=== PATIENT | female | born 1945 | race Caucasian/White ===

== ENCOUNTER 2018-07-05 12:00 | Inpatient (IN) | payer OTHER ==
[2018-07-05] VITALS (7 sets, daily range): BP systolic 150–169; BP diastolic 68–85
[~2018-07-05] VITALS: Ht 167.6 cm; Wt 90.2 kg
--- NOTE | ~2018-07-05 | PR ---
[place], [place] PROGRESS NOTE NAME: PAOLO PATEL UNIT #: [id number] ROOM: [facility]- DOCTOR: CAIO ZAIDI MD BIRTHDATE: [birth year] DOS: 07/09/2018 SUBJECTIVE: The patient's left facial swelling improving. OBJECTIVE: GENERAL APPEARANCE: The patient is alert and oriented x 3, in no visible distress. VITAL SIGNS: Blood pressure 121/62, heart rate of 64 beats per minute, breathing 22 times per minute, temperature afebrile. HEENT AND NECK: Exam within normal limits. CARDIOVASCULAR SYSTEM: Heart rate is regular in rate and rhythm. S1 and S2 normally audible. LUNGS: Decreased breath sounds all over on lung auscultation and some expiratory wheezing and rhonchi. ABDOMEN: Soft, nontender. No obvious organomegaly. Bowel sounds are present. EXTREMITIES: Without significant cyanosis or edema. IMPRESSION: 1. Acute exacerbation of severe underlying chronic obstructive pulmonary disease with nicotine smoke dependence, being treated with BiPAP, oxygen, bronchodilators and Solu-Medrol and the patient is improving. Dr. New, the hospitality housekeeper, is following. 2. Acute hyponatremia from vomiting, resolved with treatment. 3. Benign essential hypertension. Blood pressures being monitored and treated and staying normal. 4. Acute hypokalemia from nausea and vomiting has resolved. Potassium levels are normal. CAIO ZAIDI MD CM:PNTRANS [id number] CAIO ZAIDI MD 07/10/18 1234 interface
--- NOTE | ~2018-07-05 | PR ---
[place], [place] PROGRESS NOTE [facility]: [id number] UNIT #: [id number] ROOM: 408 DOCTOR: CAIO ZAIDI MD BIRTHDATE: [birth year] DOS: 07/14/2018 SUBJECTIVE: The patient continues to feel better and she is being diuresed with Lasix. OBJECTIVE: VITAL SIGNS: Blood pressure 148/67, heart rate 72 beats per minute, breathing 20 times per minute, temperature 98.1 degrees Fahrenheit. GENERAL APPEARANCE: Generalized weakness. The patient is alert and oriented x 3, in no visible distress. HEENT AND NECK: Exam within normal limits. CARDIOVASCULAR SYSTEM: Heart rate is regular in rate and rhythm. S1 and S2 normally audible. LUNGS: Clear to auscultation. ABDOMEN: Soft, nontender. No obvious organomegaly. Bowel sounds are present. EXTREMITIES: Without significant cyanosis or edema. IMPRESSION: 1. The patient with acute congestive heart failure. Echocardiogram results are pending. The patient has bilateral pleural effusions. 2. Acute exacerbation of chronic obstructive pulmonary disease with hypercapnia and hypoxemic respiratory failure, improving with treatment. Dr. New is following. 3. The patient has moderate protein-calorie malnutrition, albumin level of 2.6. The patient working with Dietary. 4. Acute pneumonia, resolved with treatment, followed by Dr. New. 5. Acute hyponatremia and hypokalemia, resolved after diuresis was stopped at admission. CAIO ZAIDI MD CM:PNTRANS 15 6 CAIO ZAIDI MD 07/15/18206 interface
--- NOTE | ~2018-07-05 | CON ---
[place], [place] REPORT OF CONSULTATION NAME: PAOLO PATEL UNIT #: [id number] ROOM: 408 DOCTOR: SANTOSH DELGADO MDSILVIA BIRTHDATE: [birth year] DOS: 07/08/2018 PULMONARY CONSULTATION, EVALUATION AND MANAGEMENT REASON FOR CONSULTATION: To assess the patient for current progressive symptoms of shortness of breath, change in mental status and increased sleepiness. HISTORY OF PRESENT ILLNESS: This is a 73-year-old white female patient, unknown to me. The history could not be obtained from as the patient noted on the BiPAP with somewhat decreased responsiveness as well. All the history which was document the patient is reviewed and the findings from the primary care physician's note and the nurse's notes. This is a 73-year-old white female patient originally admitted to the hospital on 07/05/2018 as has developed significant evidence of cellulitis on the left side of the face. She has been treated with infection and received amoxicillin. The symptoms have been noted gradually worsen. With the use of the amoxicillin, developed abdominal pain and vomiting. She was assessed, noted severe hyponatremia as well. The patient presented to the hospital with consideration of intravascular volume depletion because of the diarrhea and vomiting. The patient has been treated on the floor then later on developed progressive increased shortness of breath, which was also present on admission and transferred from the telemetry floor to the Intensive Care Unit. She has arterial blood gases done, which were showing significant hypercapnia and also noted decreased responsiveness. She has been starting the BiPAP that had been used with partial improvement in the mental status was noted. This morning as the patient was seen, she has been using the BiPAP. She has been noted unresponsive and noted to be awake per nursing staff. She has been reported symptoms of edema of the lower extremity previously as well. Further history could not be obtained. REVIEW OF SYSTEMS: Could not be obtained from this patient as well. PAST MEDICAL HISTORY: Known with a history of: 1. Essential hypertension. 2. History of chronic obstructive pulmonary disease. 3. Chronic tobacco use. 4. Gastroesophageal reflux disease. SOCIAL HISTORY: The patient lives at home. She has been known with history of tobacco use, a pack or more of cigarettes per day previously since teenager. There is no history of alcohol use. Illicit drug use unknown. PAST SURGICAL HISTORY: Reported as tubal ligation. FAMILY HISTORY: The patient was noted noncontributory. MEDICATIONS: Which were noted from home as use of Cardizem-CD, omeprazole, quinapril, simvastatin and Dyazide. DRUG ALLERGIES: Noted with no known drug allergies. [place], [place] REPORT OF CONSULTATION NAME: PAOLO PATEL UNIT #: [id number] ROOM: 408 DOCTOR: SANTOSH DELGADO MD,SILVIA BIRTHDATE: [birth year] PHYSICAL EXAMINATION: GENERAL: This is a 73-year-old female patient who has been currently noted on the BiPAP arousable with vocal commands, nodding her head for some questions. Her height was recorded by the nursing staff on admission, height of 5 feet 6 inches, weight of 196 pounds, BMI 31.7. VITAL SIGNS: For the patient, which have been recorded shows in the last 24 hours. The temperature reported as normal. The respiratory rate was recorded as 29 at the highest before start of the BiPAP and later on settled down to 20. The heart rate ranged between 77-72. The blood pressure 127/40-136/50. The intake and output was recorded. Intake 2140 mL, the output was only 40 mL with positive 1.74 liters. The pulse oxygen saturation and bilirubin was not mentioned. Pulse oxygen saturation, oxygen saturation noted 93% with the BiPAP and 93% saturation of oxygen. HEENT: Showed moderate obesity. Head was atraumatic. Eyes nonicterus. NECK: Supple and obese. CARDIOVASCULAR: S1, S2 is audible. LUNGS: Noted generally diminished breath sounds in the lungs bilaterally with scattered expiratory wheezing. No crackles. ABDOMEN: Soft with moderate obesity. Bowel sounds present. EXTREMITIES: 1-2+ pitting edema in bilateral lower extremities. SKIN: Visible skin, no lesions or rashes. CENTRAL NERVOUS SYSTEM: The patient is able to move the patient as she has been asked to do so and spontaneously. There was no suspected gross focal neurologic deficit. MUSCULOSKELETAL: Noted without any acute deformities. LABORATORY DATA: Which was assessed. The CBC on admission on 07/05/2018 was noted as normal CBC at that time. The BMP at that time was noted as normal BUN and creatinine. Sodium 128. Arterial blood gas that was done, on 6-liter nasal cannula, pH 7.28, pCO2 60.4, pO2 64.7. The chest x-ray that was done on 07/08/2018 was reviewed, shows evidence of a small infiltration in the right lower lobe with a small pleural fluid was suspected that was the first x-ray done. BMP that was done this morning, BUN normal, creatinine was normal, sodium was normal and all of the electrolytes, which were assessed were normal. IMPRESSION: 1. The patient has been currently admitted to the hospital was noted with acute exacerbation of chronic obstructive pulmonary disease with acute hypercapnia and hypoxic respiratory failure. Change in mental status related to the chronic obstructive pulmonary disease exacerbation. 2. Peripheral edema. Small pleural fluid, possibility of acute pneumonia, right lower lobe to be considered related to aspiration as well. 3. The patient with moderate obesity as well. 4. History of essential hypertension. 5. Resolution of the hyponatremia with IV hydration related to nausea and vomiting formation. 6. Resolving cellulitis of the face. PLAN OF MANAGEMENT: Completion of continuation of antibiotics. The patient is on IV Zosyn, Solu-Medrol, started 40 mg b.i.d. Bronchodilators. The patient [place], [place] REPORT OF CONSULTATION NAME: PAOLO PATEL UNIT #: [id number] ROOM: [facility] DOCTOR: SANTOSH DELGADO MD,SILVIA BIRTHDATE: [birth year] will be continued as a DuoNeb every 4 hours, which was started today. The BiPAP, which has been ordered will be continued for several hours. Repeat arterial blood gas later this afternoon to assess the improvement in ventilatory status for the acute respiratory failure. The bronchodilator to be continued and other medical management to be continued. Supportive care. Avoid any excessive amount of fluid to prevent the fluid overload. Usual care. Pleural fluid noted small and would not require any acute intervention. Keep the patient in Intensive Care Unit at this time as if the respiratory status get progressively worse in spite of the BiPAP, she will require intubation and mechanical ventilation. The patient noted full code. Other supportive therapy, plan of management. Nicotine therapy has been already given to overcome any nicotine withdrawal. Supportive care, other therapy, plan of management, care plan of treatment and therapies. Thanks for allowing me to participate in the care of this patient. SILVIA FROST MD CM:CONSTR:REPORT OF CONSULTATION 1512 07/28/18 0805 interface
--- NOTE | ~2018-07-05 | PR ---
[place], [place] PROGRESS NOTE [id number] UNIT #: [id number] ROOM: 408 DOCTOR: SANTOSH DELGADO MD,SILVIA BIRTHDATE: [birth year] DOS: 07/13/2018 PULMONARY PROGRESS NOTE SUBJECTIVE: The patient has been still complaining of the fluid retention. She was started Lasix yesterday. Denies symptoms of fever or chills. Denies symptoms of chest pain or hemoptysis. Denies symptoms of nausea, vomiting, complaining of edema of the lower extremity. Denies any pain of the lower extremity. Denies symptoms of headache or diplopia. Remaining systems were reviewed. They were noted all negative. OBJECTIVE: VITAL SIGNS: For the patient, which are recorded showed normal temperature, respiratory rate 20, heart rate 62, blood pressure 167/81-162/82. Pulse oxygen saturation of the patient recorded on 3 liters nasal cannula 92% saturation. Intake for the patient of 1875 mL and output 650 mL recorded. Pulse ox saturation on 3 liters nasal cannula 92% saturation. HEENT: Examination shows head was atraumatic. Eyes nonicterus. NECK: Supple. CARDIOVASCULAR: S1, S2 heard. LUNGS: Moderate decreased breath sounds, scattered crackles of the lungs bilaterally. ABDOMEN: Soft, nontender, bowel sounds present and obese. EXTREMITIES: Noted with edema. MUSCULOSKELETAL: Without acute deformities. VISIBLE SKIN: No lesions or rashes. CENTRAL NERVOUS SYSTEM: Nonfocal. LABORATORY DATA: Chest x-ray that was done yesterday for the patient was noted with finding of congestive heart failure with small bilateral pleural effusions as well. CBC of yesterday for the patient was noted with a WBC count of 15.6, hemoglobin and hematocrit normal, platelet count normal. CMP, the patient yesterday normal BUN and creatinine, mildly abnormal AST, ALT. BMP of the patient this morning, normal BUN and creatinine. CO2 36. IMPRESSION: The patient who has been noted with current acute congestive heart failure with acute exacerbation of chronic obstructive pulmonary disease. The patient was given 80 mg of Lasix yesterday for this patient noted with the diuresis cannot be accurately determined because of the lack of the correct output documentation. The patient was still noted edema finding and the finding of congestive heart failure. PLAN OF MANAGEMENT: The patient was recommended Cardiology assessment if not ordered. Diuretic therapy to be continued. Supportive therapy, plan of management, care plan of treatment and usual care. [place], [place] PROGRESS NOTE NAME: PAOLO PATEL UNIT #: [id number] ROOM: [facility] DOCTOR: SILVIA SINGH MD BIRTHDATE: [birth year] SILVIA FROST MD CM:PNTRANS 2 4 SILVIA DELGADO MD 07/28/18 0804 interface
--- NOTE | ~2018-07-05 | PR ---
[place], [place] PROGRESS NOTE [id number] #: [id number] ROOM: 408 DOCTOR: CAIO ZAIDI MD BIRTHDATE: [birth year] DOS: SUBJECTIVE: The patient continues to improve. She has diuresed very well. OBJECTIVE: GENERAL APPEARANCE: The patient is alert and oriented x 3, in no visible distress. The patient is still requiring oxygen. VITAL SIGNS: Blood pressure 121/59, heart rate of 70 beats per minute, breathing 20 times per minute, afebrile. HEENT AND NECK: Exam within normal limits. CARDIOVASCULAR SYSTEM: Heart rate is regular in rate and rhythm. S1 and S2 normally audible. LUNGS: Clear to auscultation. ABDOMEN: Soft, nontender. No obvious organomegaly. Bowel sounds are present. EXTREMITIES: Without significant cyanosis or edema. IMPRESSION: 1. The patient with acute over chronic diastolic type congestive heart failure with left ventricular hypertrophy, improved with diuresis with IV Lasix. Cardiology is following. 2. Left facial cellulitis and dental infection, has resolved with treatment of antibiotics. 3. Acute exacerbation of chronic obstructive pulmonary disease, improving with treatment, Dr. New is following. 4. Moderate protein-calorie malnutrition with albumin level of 2.6, being followed by Dietary. 5. Acute pneumonia, resolved. Dr. New is following. 6. Acute hyponatremia and hypokalemia, resolved. CAIO ZAIDI MD CM:PNTRANS [phone] CAIO ZAIDI MD 07/16/18 0146 interface
--- NOTE | ~2018-07-05 | DS ---
[place], [place] DISCHARGE SUMMARY NAME: PAOLO PATEL UNIT #: [id number] ROOM: 408 DOCTOR: ROLANDO HAMILTON MD BIRTHDATE: [birth year] DOS: 07/17/2018 HOSPITAL COURSE: This patient is 73 years old. The patient comes in to the Emergency Room with complaints of swelling of the left side of the face on 07/05/2018. She also was having some nausea and emesis. She was found to be hyponatremic and was admitted with facial cellulitis, possible dental abscess. Please refer to H and P dictated by Dr. Goss as well as consult notes from multiple consultants and progress notes over the last several days. She was admitted, was treated with hyponatremia. She was started on antibiotics for the cellulitis and IV fluids were given. The patient also had underlying chronic obstructive pulmonary disease and acute exacerbation, was treated with appropriate treatment plan with breathing treatments and antibiotics and steroids. The patient did improve, but received Dilaudid, which made her go into respiratory failure, was transferred to ICU, was monitored in the ICU, was placed on BiPAP with improvement and then [place] [facility] She was seen by Dr. New as well as Dr. Ren. Echocardiogram showed normal LV function. She went into acute diastolic congestive heart failure, for which she was diuresed. The patient has required continued oxygen supplementation. She has not smoked for about 2 weeks and she has been here. Oxygen assessment will be ordered and if she qualifies, we will need to arrange for oxygen supplementation. Otherwise, the patient is stable and can be discharged to home. Last chest x-ray, which did show small pleural effusion, but this was not amenable for thoracentesis. DISCHARGE MEDICATIONS: Aldactone 25 mg daily, Lasix 40 daily, diltiazem 240 daily, quinapril 40 daily, simvastatin 10 daily, omeprazole 20 daily, tapering dose of prednisone, DuoNeb q.4, nebulizer was prescribed and Ceftin 250 twice daily for 5 days. [place], [place] DISCHARGE SUMMARY NAME: PAOLO PATEL UNIT #: [id number] ROOM: 408 DOCTOR: ROLANDO HAMILTON MD BIRTHDATE: [birth year] ROLANDO HAMILTON MD CM:RAJINDER [id number] 1622 ROLANDO HAMILTON MD 07/17/18 1622 interface
--- NOTE | ~2018-07-05 | PR ---
[place], [place] PROGRESS NOTE NAME: PAOLO PATEL UNIT #: [id number] ROOM: [facility] DOCTOR: SILVIA SINGH MD BIRTHDATE: [birth year] DOS: 07/09/2018 SUBJECTIVE: The patient has been noted comfortable at this time, resting, use the BiPAP intermittently, had not been reported hemodynamic instability, and has not been noted symptoms of chest pain, fever or chills. The patient has been noted without any acute distress this morning of assessment. Remains in the Intensive Care Unit. Mental status was noted much improved. Remaining systems were reviewed, negative. OBJECTIVE: VITAL SIGNS: Normal temperature, respiratory rate 22, heart rate 64, blood pressure 121/60 to 156/85. Pulse oxygen saturation on 4 liters nasal cannula 94% saturation recorded. HEAD, EYES, EARS, NOSE, AND THROAT: No acute change. NECK: Supple. CARDIOVASCULAR SYSTEM: S1, S2 is audible. LUNGS: Noted with moderate decreased breath sounds in the lungs bilaterally. ABDOMEN: Soft, nontender. EXTREMITIES: Noted without any edema, clubbing or cyanosis. VISIBLE SKIN: No lesions or rashes. CENTRAL NERVOUS SYSTEM: Noted without any gross focal deficit. LABORATORY DATA: Arterial blood gas yesterday pH of 7.31, pCO2 of 57, pO2 of 64. BMP this morning, normal BUN and creatinine. IMPRESSION: 1. Acute respiratory failure with hypercapnia and hypoxemia. 2. Moderate obesity. 3. Change in mental status, which has been improving. 4. Acute exacerbation of chronic obstructive pulmonary disease as well. PLAN OF TREATMENT: Continue antibiotics, bronchodilators, corticosteroids and the BiPAP use. Order the arterial blood gas to reassess the improvement in the ventilation today. Continue other therapy, plan and management previously otherwise, usual care. Additional treatment changes, continue to be made based on progression of the illness. [place], [place] PROGRESS NOTE NAME: PAOLO PATEL UNIT #: [id number] ROOM: [facility] DOCTOR: SILVIA SINGH MD BIRTHDATE: [birth year] SILVIA FROST MD CM:PNTRANS [id number] 1738 SILVIA DELGADO MD 07/09/18 1737 interface
--- NOTE | ~2018-07-05 | PR ---
[place], [place] PROGRESS NOTE NAME: PAOLO PATEL UNIT #: [id number] ROOM: 408 DOCTOR: SILVIA SINGH MD BIRTHDATE: [birth year] DOS: 07/15/2018 PULMONARY PROGRESS NOTE SUBJECTIVE: The patient continued to do well with current diuresis with improvement in the edema of the lower extremity and reduction in symptoms of shortness of breath in the last 24 hours. Denies symptoms of fever or chills. Denies symptoms of hemoptysis. Denies symptoms of chest pain. BiPAP has been used by the patient at nighttime and daytime oxygen supplementation nasal cannula. OBJECTIVE: VITAL SIGNS: Normal temperature, respiratory rate of 18, heart rate 79, blood pressure 126/65. The pulse oxygen saturation recorded as 95% on 3 liters cannula. HEENT: Examination shows head was atraumatic. Eyes: No icterus. NECK: Supple. CARDIOVASCULAR: S1, S2 is audible. LUNGS: The patient was noted without any wheeze or crackles at the present time. ABDOMEN: Soft, nontender. EXTREMITIES: Noted resolving edema. IMPRESSION: 1. Resolving acute congestive heart failure with the pleural fluid clinical as well. 2. Improving congestive heart failure, respiratory failure with hypercapnia and chronic obstructive pulmonary disease as well. 3. Metabolic alkalosis. The patient was noted with the patient's CO2 level of 40 today, multifactorial secondary to hypercarbia and intravascular volume depletion and diuretics. PLAN OF MANAGEMENT: Monitoring of the metabolic alkalosis. Continue diuretics. Continue bronchodilator of the treatment plan and management. Obtain a chest x-ray in the morning to assess the resolution of the current pleural fluid and congestive heart failure. [place], [place] PROGRESS NOTE NAME: PAOLO PATEL UNIT #: [id number] ROOM: 408 DOCTOR: SILVIA SINGH MD BIRTHDATE: [birth year] SILVIA FROST MD CM:PNTRANS [id number] SILVIA DELGADO MD 07/15/18 1759 interface
--- NOTE | ~2018-07-05 | PR ---
[place], [place] PROGRESS NOTE NAME: PAOLO PATEL UNIT #: [id number] ROOM: [facility] DOCTOR: SILVIA SINGH MD BIRTHDATE: [birth year] DOS: 07/10/2018 PULMONARY PROGRESS NOTE SUBJECTIVE: The patient is noted comfortable at this time, resting on the bed. Noted fully awake and alert, using oxygen supplementation this morning through nasal cannula, used BiPAP for significant amount of hours in the last 24 hours. Denies symptoms of chest pain. Coughing and wheezing have been gradually subsiding. There were no symptoms of chest pain or any abdominal pain. OBJECTIVE: VITAL SIGNS: Which were recorded showed the temperature noted as normal, the respiratory rate of the patient recorded as 21, heart rate 87, blood pressure 127/55. The pulse oxygen saturation on nasal cannula 4 liters was 92% saturation at rest. HEENT: Shows head was atraumatic, eyes nonicterus. NECK: Supple. CARDIOVASCULAR: S1 and S2 audible. LUNGS: The patient was noted without any crackles or rhonchi. Decreased breath sounds were noted in the lower portion of the lungs bilaterally. ABDOMEN: Soft with mild to moderate obesity. Bowel sounds present. EXTREMITIES: Without any acute edema. LABORATORY DATA: Arterial blood gas that was done this morning with pH of 7.39, pCO2 45, pO2 73 on 4 liters nasal cannula. IMPRESSION: 1. The patient with gradual but progressive resolution of acute exacerbation of chronic obstructive pulmonary disease was noted with improvement in ventilatory status. 2. Acute bronchitis. 3. Resolved mental status changes. 4. Moderate obesity. PLAN OF MANAGEMENT: Continuation of bronchodilators, oxygen supplementation. She is still using BiPAP as previously without any changes, similar to that as tolerated during the day, continues at nighttime. Decrease the dose of Solu-Medrol to 40 mg b.i.d. from 3 times a day dosing. [place], [place] PROGRESS NOTE NAME: PAOLO PATEL UNIT #: [id number] ROOM: [facility] DOCTOR: SILVIA SINGH MD BIRTHDATE: [birth year] SILVIA FROST MD CM:PNTRANS 1632 SILVIA DELGADO MD 07/11/183 interface
--- NOTE | ~2018-07-05 | PR ---
[place], [place] PROGRESS NOTE [id number] UNIT #: [id number] ROOM: [facility]- DOCTOR: CAIO ZAIDI MD BIRTHDATE: [birth year] DOS: 07/07/2018 SUBJECTIVE: The patient still with left-sided facial weakness and some tenderness in her left cheek, which is improving with present treatment and antibiotics. OBJECTIVE: VITAL SIGNS: Blood pressure 120/60, heart rate of 63 beats per minute, breathing 18 times per minute, afebrile. GENERAL APPEARANCE: The patient is alert and oriented x 3, in no visible distress. HEENT AND NECK: Exam within normal limits. CARDIOVASCULAR SYSTEM: Heart rate is regular in rate and rhythm. S1 and S2 normally audible. LUNGS: Clear to auscultation. ABDOMEN: Soft, nontender. No obvious organomegaly. Bowel sounds are present. EXTREMITIES: Without significant cyanosis or edema. IMPRESSION: 1. The patient with left cheek and facial cellulitis, improving with treatment. 2. Severe hyponatremia, resolved with treatment. Sodium level at 137 today with hydration with normal saline. The patient's diuretics were stopped. 3. Centrilobular emphysema and continued nicotine smoke dependence. The patient has been encouraged to stop smoking cigarettes. 4. The patient with peripheral polyneuropathy and chronic leg pains treated with Neurontin. 5. Benign essential hypertension. Blood pressures are being monitored and treated and staying normal. 6. Significant abdominal pain, nausea and vomiting have resolved. CAIO ZAIDI MD CM:PNTRANS 02 31 CAIO ZAIDI MD 07/08/181831 interface
--- NOTE | ~2018-07-05 | PR ---
[place], [place] PROGRESS NOTE NAME: PAOLO PATEL UNIT #: [id number] [facility] DOCTOR: CAIO ZAIDI MD BIRTHDATE: [birth year] DOS: 07/08/2018 SUBJECTIVE: The patient became short of breath, lethargic and hypoxemic this morning and went into acute respiratory failure and was transferred to ICU and she is starting to feel better. OBJECTIVE: VITAL SIGNS: Blood pressure 123/53, heart rate 72 beats per minute, breathing 18 times per minute, temperature 98.8 degrees Fahrenheit. GENERAL APPEARANCE: The patient is alert and oriented x 3, in no visible distress. HEENT AND NECK: Exam within normal limits. CARDIOVASCULAR SYSTEM: Heart rate is regular in rate and rhythm. S1 and S2 normally audible. LUNGS: Somewhat decreased breath sounds. ABDOMEN: Soft, nontender. No obvious organomegaly. Bowel sounds are present. EXTREMITIES: Without significant cyanosis or edema. IMPRESSION: 1. Acute over chronic respiratory failure, possibly mucus plugging with hypoxemia, all improved. Dr. New, the political research scientist has put her on BiPAP. 2. Hyponatremia from vomiting and the patient is unable to tolerate food because she was sick. Sodium has returned to normal with treatment with normal saline. 3. Benign essential hypertension, treated and blood pressure is staying normal. 4. The patient has severe peripheral polyneuropathy and chronic leg pain, is now controlled with Neurontin. 5. Hypokalemia from nausea and vomiting has resolved with potassium supplements. CAIO ZAIDI MD CM:PNTRANS [id number] CAIO ZAIDI MD 07/09/18 1026 interface
--- NOTE | ~2018-07-05 | PR ---
[place], [place] PROGRESS NOTE NAME: [id number] UNIT #: [id number] ROOM: 408 DOCTOR: CAIO ZAIDI MD BIRTHDATE: [birth year] DOS: SUBJECTIVE: The patient went to acute congestive heart failure with hydration with normal saline, which has been stopped and the patient diuresed with IV Lasix. Her chest x-ray showed congestive heart failure. Chest x-ray will be repeated tomorrow. PHYSICAL EXAM: GENERAL: The patient is well developed and appropriate for usual state of health in no apparent distress. VITAL SIGNS: Blood pressure 157/69, heart rate 89 beats per minute, breathing 20 times per minute, temperature 98 degrees Fahrenheit. HEENT: Pupils equal, round, and reactive to light. EOMI. There is no scleral icterus. NECK: C-spine is soft and supple, there is no meningismus. There is no cervical lymphadenopathy. LUNGS: Clear to auscultation bilaterally. There are no rales, wheezes or rhonchi. HEART: Regular rate and rhythm, no murmurs, clicks, rubs or gallops. ABDOMEN: Soft, nontender, nondistended. There are bowel sounds in all four quadrants. No rebound or guarding. EXTREMITIES: There is no peripheral cyanosis or edema. No focal swelling or erythema. NEURO: The patient moves all four extremities with 5/5 strength. Cranial nerves II - XII are intact. Normal gait. Alert and oriented SKIN: There is no apparent rash or petechiae. HEME/LYMPHATIC: There is no evidence of excessive bruising or lymphedema. PSYCHIATRIC: The patient does not appear anxious or depressed. IMPRESSION: 1. Acute congestive heart failure, treated with IV Lasix. Serum electrolytes to be monitored and chest x-ray to be repeated in the morning. 2. Moderate to severe protein-calorie malnutrition. The patient is working with dietary. 3. Leukocytosis from corticosteroids, which have been discontinued. 4. Acute over chronic hypercapnic hypoxemic respiratory failure with acute exacerbation of chronic obstructive pulmonary disease, improving with treatment. 5. Acute pneumonia, resolving with treatment. 6. Acute hyponatremia and hypokalemia, resolved with supplements, was secondary to diuretics, which have been stopped. 7. Benign essential hypertension with elevated blood pressures. Should resolve with diuresis. [place], [place] PROGRESS NOTE NAME: PAOLO PATEL UNIT #: [id number] ROOM: 408 DOCTOR: CAIO ZAIDI MD BIRTHDATE: [birth year] CAIO ZAIDI MD CM:PNTRANS [id number] CAIO ZAIDI MD 07/13/18 0723 interface
--- NOTE | ~2018-07-05 | PR ---
[place], [place] PROGRESS NOTE [id number] UNIT #: [id number] ROOM: 415 DOCTOR: CAIO ZAIDI MD BIRTHDATE: [birth year] DOS: 07/06/2018 SUBJECTIVE: The patient is starting to feel better. The pain and swelling in her left cheek is improving and abdominal pains have also improved. OBJECTIVE: VITAL SIGNS: Blood pressure 114/84, heart rate 73 beats per minute, breathing 20 times per minute, temperature 98.2 degrees Fahrenheit. GENERAL APPEARANCE: The patient is alert and oriented x 3, in no visible distress. HEENT AND NECK: Swelling on the left cheek. CARDIOVASCULAR SYSTEM: Heart rate is regular in rate and rhythm. S1 and S2 normally audible. LUNGS: Clear to auscultation. ABDOMEN: Soft, nontender. No obvious organomegaly. Bowel sounds are present. EXTREMITIES: Without significant cyanosis or edema. IMPRESSION AND PLAN: 1. Hyponatremia with sodium improved to 128 from 118 yesterday. Hyponatremia from vomiting and the patient being unable to tolerate food earlier, was treated with hydration with normal saline. 2. Hypokalemia, again from vomiting and not being able to tolerate food from nausea and vomiting, has returned to normal with extra potassium supplements. 3. Centrilobular emphysema and nicotine smoke dependence. The patient has been encouraged to stop smoking cigarettes. 4. The patient has peripheral polyneuropathy and chronic leg pains, is requesting to be restarted on Neurontin, which was restarted. She was taking that before, but ran out of her prescriptions because she was not following up at the office with me. 5. Benign essential hypertension with normal blood pressures. The patient's diuretics were stopped because they were contributing to her hyponatremia and hypokalemia. 6. Significant abdominal pain with nausea and vomiting has resolved. CAIO ZAIDI MD CM:PNTRANS [phone] CAIO ZAIDI MD 07/07/18224 interface
--- NOTE | ~2018-07-05 | EKG ---
[place], [place] ELECTROCARDIOGRAM REPORT NAME: PAOLO PATEL UNIT #: [id number] ROOM: 415 DOCTOR: LAMIN DRAFT REPORT BIRTHDATE: [birth year] [facility] Test Date: 2018-07-05 Test Time: 12:45:51 Pat Name: PAOLO PATEL Department: Room: 415 Gender: F Technician Inventory Specialist: : 1945 Requested By: GENESIS COTA Order Number: [id number] Reading MD: Melanie De Los Santos MD Measurements Intervals [place] Rate: 80 P: -37 [place]: 169 QRS: -9 QRSD: 92 T: 68 QT: 449 QTc: 518 Interpretive Statements Sinus rhythm Minimal ST depression, inferior leads Prolonged QT interval No previous ECG available for comparison Electronically Signed On 07-05-2018 17:03:41 PST by Melanie De Los Santos MD CM:EKGRPT:ELECTROCARDIOGRAM REPORT [id number] GENESIS COTA MD EPIPHANY DRAFT REPORT GENESIS COTA MD
--- NOTE | ~2018-07-05 | PR ---
[place], [place] PROGRESS NOTE NAME: PAOLO PATEL UNIT #: [id number] ROOM: 408 DOCTOR: SILVIA SINGH MD BIRTHDATE: [birth year] DOS: 07/14/2018 PULMONARY PROGRESS NOTE SUBJECTIVE: She has been still noted with symptoms of shortness of breath that occurs with exertion. She has been assessed by the Cardiology Services. Denies symptoms of chest pain, edema of the lower extremity still reported. Denies symptoms of hemoptysis, nausea, vomiting or diarrhea. The patient was using the BiPAP as ordered and using oxygen supplementation intermittently as well. OBJECTIVE: VITAL SIGNS: Normal temperature, respiratory rate 20, heart rate of 70, blood pressure 127/71. Pulse oxygen saturation on 3 liters nasal cannula 93% saturation at rest with the BiPAP 40% and 92% saturation of oxygen noted. HEENT: Head was atraumatic. Eyes nonicterus. Moderate obesity. CARDIOVASCULAR: S1, S2 audible. LUNGS: Diminished breath sounds bilaterally in the lower lungs. There was no wheezing. No crackles. ABDOMEN: Soft and nontender. EXTREMITIES: Noted with edema. LABORATORY DATA: The patient's chest x-ray done yesterday was still noted with pleural fluid bilaterally, greater on the left than the right side. IMPRESSION: 1. The patient with congestive heart failure, bilateral pleural fluid, greater on the left than the right side. 2. Resolving acute hypercapnia hypoxic respiratory failure, exacerbation of chronic obstructive pulmonary disease. 3. Chronic obesity. 4. Suspicion of obstructive sleep apnea disorder as well. PLAN OF MANAGEMENT: No changes in the plan of care at this time would be needed. The patient will be continued on current plan of management as in progress. Other usual care, plan of management. She was ordered Lasix 60 mg daily for the next 3 days with potassium supplementation and the assessment of the electrolytes were ordered as well. [place], [place] PROGRESS NOTE NAME: PAOLO PATEL UNIT #: [id number] ROOM: 408 DOCTOR: SILVIA SINGH MD BIRTHDATE: [birth year] SILVIA FROST MD CM:PNTRANS [phone] SILVIA DELGADO MD 07/14/18 1658 interface
--- NOTE | ~2018-07-05 | PR ---
[place], [place] PROGRESS NOTE NAME: PAOLO PATEL UNIT #: [id number] ROOM: 408 DOCTOR: CAIO ZAIDI MD BIRTHDATE: [birth year] DOS: 07/11/2018 SUBJECTIVE: The patient says she is breathing a little better. OBJECTIVE: GENERAL APPEARANCE: The patient is alert and oriented x 3, in no visible distress. VITAL SIGNS: Blood pressure 148/74, heart rate 80 beats per minute, breathing 17 times per minute, temperature 98 degrees Fahrenheit. HEENT AND NECK: Exam within normal limits. CARDIOVASCULAR SYSTEM: Heart rate is regular in rate and rhythm. S1 and S2 normally audible. LUNGS: Clear to auscultation. ABDOMEN: Soft, nontender. No obvious organomegaly. Bowel sounds are present. EXTREMITIES: Without significant cyanosis or edema. IMPRESSION: 1. Acute exacerbation of severe underlying chronic obstructive pulmonary disease and acute over chronic respiratory failure with continued nicotine smoke dependence. Breathing is overall improving, so I will move her to intermediate monitored bed. The patient is on Solu-Medrol, DuoNeb, and Zosyn. 2. Acute hypokalemia, resolved with potassium supplements. 3. Acute hyponatremia from vomiting, resolved with treatment. 4. Benign essential hypertension. Blood pressures are staying normal with treatment. CAIO ZAIDI MD CM:PNTRANS [phone] CAIO ZAIDI MD 07/12/18 182 interface
--- NOTE | ~2018-07-05 | WRIGHTHP ---
[place], [place] PATIENT HISTORY AND PHYSICAL EXAM NAME: PAOLO PATEL [facility] #: [id number] UNIT #: [id number] ROOM: 415 DOCTOR: CAIO ZAIDI MD BIRTHDATE: [birth year] DOS: 07/05/2018 HISTORY OF PRESENT ILLNESS: The patient is a 73-year-old female with a past medical history of: 1. Obesity. 2. Benign essential hypertension. 3. Gastroesophageal reflux disease and esophagitis. 4. Chronic obstructive pulmonary disease. 5. The patient has nicotine smoke dependence. The patient presented to the Emergency Department with complaints of left-sided swelling in her face and was treated for cellulitis and tooth infection and dental pain and she was given amoxicillin, following which she developed significant abdominal pains and some vomiting. The patient returned to the Emergency Department and was found to be hyponatremic with cellulitis involving the left face and significant abdominal pains along with hyponatremia and she was recommended for admission on further management for failed outpatient treatment. After admission, the patient still complains of significant abdominal pains. The patient's CT scan of the sinuses and the face and the orbits showed some soft tissue swelling and diffuse inflammation, but no abscess. Chest x-ray showed COPD. The patient was also found to be hypokalemic with a potassium level of only 3.1. No chest pain, no shortness of breath, no other GI or urinary symptoms. REVIEW OF SYSTEMS: RESPIRATORY: No increasing shortness of breath. GASTROINTESTINAL: The patient with stomach pains and vomiting. CARDIOVASCULAR: No chest pains or palpitations. RESPIRATORY: No increasing shortness of breath or wheezing. FAMILY HISTORY: Noncontributory. HOME MEDICATIONS: The patient was taking diuretics, quinapril and diltiazem. ALLERGIES: No known drug allergies. HOME MEDICATIONS: As mentioned above. FAMILY HISTORY: Noncontributory. PHYSICAL EXAMINATION: GENERAL: Alert and oriented x 3. Obesity with BMI of 31.7. HEENT AND NECK: Extraocular movements are intact. Sclerae are anicteric. Oral mucosa is moist and clean. No obvious facial weakness. Neck is supple without any lymphadenopathy. No thyromegaly. No JVD. No carotid arterial bruits. LUNGS: Clear to auscultation. No wheezing. No rhonchi. CARDIOVASCULAR SYSTEM: Heart rate is regular in rate and rhythm. S1 and S2 normally audible. No significant murmur or any other abnormal cardiac sounds. ABDOMEN: Soft, nontender. No obvious organomegaly. Bowel sounds are present. No obvious herniation. [place], [place] PATIENT HISTORY AND PHYSICAL EXAM NAME: PAOLO PATEL UNIT #: [id number] ROOM: [facility] DOCTOR: CAIO ZAIDI MD BIRTHDATE: [birth year] EXTREMITIES: Without significant cyanosis or edema. Warm to touch. CENTRAL NERVOUS SYSTEM: Alert and oriented x 3. Cranial nerves II-XII are intact. Speech is normal. The patient is able to move all extremities. Normal muscle strength. Deep tendon reflexes are equal on both sides. Plantars were downgoing. IMPRESSION: 1. The patient presenting with left facial cellulitis and dental infection on the left side to be treated with IV Zosyn and blood counts and serum electrolytes to be monitored. The patient's white cell count is elevated to 13,600 at admission. 2. Hyponatremia and hypokalemia from vomiting and not being able to tolerate food. The patient is being hydrated with normal saline and given extra potassium supplements and serum electrolytes will be repeated on a daily basis. 3. Significant abdominal pains and some nausea and vomiting, being treated with Zofran. 4. Centrilobular emphysema, nicotine smoke dependence. The patient without shortness of breath. 5. Nicotine smoke dependence. The patient encouraged to stop smoking cigarettes and started on nicotine patch. 6. Benign essential hypertension with elevated blood pressures. The patient continued on lisinopril and diltiazem. 7. The patient's diuretics, which were apparently contributing to her hyponatremia and hypokalemia, have been given. CAIO ZAIDI MD CM:HISPHYS:PATIENT HISTORY AND PHYSICAL EXAMINATION 56 15 CAIO ZAIDI MD 07/05/181715 interface
--- NOTE | ~2018-07-05 | PR ---
[place], [place] PROGRESS NOTE NAME: PAOLO PATEL UNIT #: [id number] ROOM: 408 DOCTOR: CAIO ZAIDI MD BIRTHDATE: [birth year] DOS: 07/11/2018 SUBJECTIVE: The patient is feeling much better. Breathing has improved. OBJECTIVE: VITAL SIGNS: Blood pressure 137/66, heart rate of 71 beats per minute, breathing normally, afebrile. GENERAL APPEARANCE: The patient is alert and oriented x 3, in no visible distress. HEENT AND NECK: Exam within normal limits. CARDIOVASCULAR SYSTEM: Heart rate is regular in rate and rhythm. S1 and S2 normally audible. LUNGS: Some expiratory wheezing, slightly decreased breath sounds on lung auscultation. ABDOMEN: Soft, nontender. No obvious organomegaly. Bowel sounds are present. EXTREMITIES: Without significant cyanosis or edema. IMPRESSION: 1. The patient with acute over chronic respiratory failure with acute exacerbation of chronic obstructive pulmonary disease is being followed by Dr. New. I will transfer to [facility]. 2. Acute hyponatremia and hypokalemia has resolved. 3. Benign essential hypertension, treated and controlled. 4. No more abdominal pain, nausea, vomiting. CAIO ZAIDI MD CM:PNTRANS [phone] CAIO ZAIDI MD 07/12/18 1332 interface
--- NOTE | ~2018-07-05 | PR ---
[place], [place] PROGRESS NOTE NAME: PAOLO PATEL UNIT #: [id number] ROOM: [facility] DOCTOR: SANTOSH DELGADO MD,SILVIA BIRTHDATE: [birth year] DOS: 07/11/2018 SUBJECTIVE: The patient has been going well continuously. Use the BiPAP for patient as ordered at night and p.r.n. during the day. This morning was sitting on the chair. Shortness of breath has been improved significantly. There were no symptoms of fever, chills, coughing or sputum expectoration reported today. OBJECTIVE: VITAL SIGNS: For the patient which were recorded showed normal temperature, respiratory rate 21, heart rate 79, blood pressure 124/64. The pulse oxygen saturation on 4 liters nasal cannula, rest was 94% saturation. HEENT: Examination shows head was atraumatic. Eyes nonicterus. NECK: Supple. CARDIOVASCULAR: S1, S2 is audible. LUNGS: The patient has diminished breath sounds in the lungs bilaterally, improved air entry noted. Scattered wheezing. ABDOMEN: Soft, nontender. Bowel sounds present. EXTREMITIES: No acute change. IMPRESSION: Progressive but gradual resolution of [id number]-[id number] hypercapnic and hypoxic respiratory failure with exacerbation of chronic obstructive pulmonary disease, debility and muscle deconditioning. PLAN OF TREATMENT: The patient may be transferred from the intensive care unit to medical floor. Physical therapy, occupation therapy should be assessed. Continue oxygen supplementation to maintain pulse ox saturation 90% or greater. Other supportive therapy, plan of management, care plan and therapies. SILVIA FROST MD CM:PNTRANS [phone] SILVIA DELGADO MD 07/11/18 1140 interface
--- NOTE | ~2018-07-05 | PR ---
[place], [place] PROGRESS NOTE NAME: PAOLO PATEL UNIT #: [id number] ROOM: 408 DOCTOR: SANTOSH DELGADO MD,SILVIA BIRTHDATE: [birth year] DOS: 07/16/2018 PULMONARY PROGRESS NOTE SUBJECTIVE: The patient was noted comfortable at this time, resting on the bed. Continued to show improvement in the respiratory symptoms, no shortness of breath. There were no symptoms of chest pain, fever or chills reported by the patient. REVIEW OF SYSTEMS: The patient denies symptoms of headache or diplopia, nausea, vomiting, diarrhea, abdominal pain, hematemesis, melena, hematochezia. The ambulation was improving and decreased shortness of breath. Remaining systems were reviewed. They were noted all negative. OBJECTIVE: VITAL SIGNS: Normal temperature, respiratory rate 20, heart rate 63, blood pressure 120/59. Pulse ox saturation on 3 liters nasal cannula 93% saturation. HEENT: Head was atraumatic. Eyes nonicterus. NECK: Supple. CARDIOVASCULAR: S1, S2 audible. LUNGS: The patient was noted with mild decreased breath sounds left lung base, remaining lung was clear. ABDOMEN: Soft, nontender. Bowel sounds present. EXTREMITIES: The extremities without any acute edema today. No new change. CENTRAL NERVOUS SYSTEM: Cranial nerves 2-12 intact. MUSCULOSKELETAL: Without acute deformities. SKIN: No lesions or rashes. LABORATORY DATA: Chest x-ray done this morning shows small left pleural fluid, the right lung was clear. The ultrasound of the chest was also performed at the bedside shows only small fluid non-tappable because of the lung was noted in the view of the pleural fluid. IMPRESSION: 1. Resolving acute on chronic hypercapnic and hypoxic respiratory failure with acute exacerbation of chronic obstructive pulmonary disease. 2. Acute congestive heart failure as well with the diastolic dysfunction. 3. Small left pleural fluid improving progressively. 4. The patient with moderate obesity. 5. Past history of nicotine use. PLAN OF MANAGEMENT: Continuation of diuretic, bronchodilators, oxygen supplementation. Discharge planning with oral conversion of the medication and diuretics would be considered possibly in the next 24 hours. Continuation of other therapy, plan of management, care plan of treatment and therapy, does not require any acute new intervention. [place], [place] PROGRESS NOTE NAME: PAOLO PATEL UNIT #: [id number] ROOM: [facility] DOCTOR: SILVIA SINGH MD BIRTHDATE: [birth year] SILVIA FROST MD CM:PNTRANS 1531 SILVIA DELGADO MD 07/16/18 1618 interface
--- NOTE | ~2018-07-05 | PR ---
[place], [place] PROGRESS NOTE NAME[id number] UN[facility] #: [id number] ROOM: 408 DOCTOR: ROLANDO HAMILTON MD BIRTHDATE: [birth year] DOS: 07/17/2018 SUBJECTIVE: The patient is sitting up in a chair. She just went to the bathroom and breathing easy. She does not require any oxygen this morning. OBJECTIVE: VITAL SIGNS: Blood pressure is 129/48, pulse of 85, respirations 20, temperature 99.0. LUNGS: Clear. HEART: Regular. ABDOMEN: Obese. EXTREMITIES: Without any edema. ASSESSMENT AND PLAN: 1. The patient with acute diastolic congestive heart failure, resolved. 2. Chronic obstructive pulmonary disease with moderate cigarette smoker. The patient has continued to require oxygen supplementation. We will do an assessment for home O2. The patient is cleared for discharge. We will try to discharge her today. 3. Dental infection, which has resolved. The patient is counseled against smoking. Plan is to discharge today. ROLANDO HAMILTON MD CM:PNTRANS [id number] ROLANDO HAMILTON MD 07/18/18 0356 interface
--- NOTE | ~2018-07-05 | PR ---
[place], [place] PROGRESS NOTE NAME: PAOLO PATEL UNIT #: [id number] ROOM: [facility] DOCTOR: DYAN SEVILLA,CAIO Nolan BIRTHDATE: [birth year] DOS: 07/10/2018 SUBJECTIVE: The patient is breathing better on BiPAP, still in respiratory failure. OBJECTIVE: VITAL SIGNS: Blood pressure 121/53, breathing 20 times per minute, afebrile, heart rate of 67 beats per minute. IMPRESSION: 1. Acute exacerbation of chronic obstructive pulmonary disease, with history of nicotine smoke dependence. The patient is becoming hypoxemic off and on. Dr. New is following and treating her with bilevel positive airway pressure in the Intensive Care Unit. She is also on Solu-Medrol, DuoNeb and Zosyn. 2. Acute hypokalemia, resolved with potassium supplements. It resulted from nausea, vomiting. 3. Benign essential hypertension, treated and controlled. 4. Acute hyponatremia from vomiting, has resolved with treatment. CAIO ZAIDI MD CM:PNTRANS [phone] CAIO ZAIDI MD 07/11/18 0301 interface
--- NOTE | ~2018-07-05 | PR ---
[place], [place] PROGRESS NOTE NAME: PAOLO PATEL UNIT #: [id number] ROOM: 408 DOCTOR: CAIO ZAIDI MD BIRTHDATE: [birth year] DOS: 07/13/2018 SUBJECTIVE: The patient is starting to breathe better after diuresis. OBJECTIVE: VITAL SIGNS: Blood pressure 148/60, heart rate 68 beats per minute, breathing 20 times per minute, temperature of 98 degrees Fahrenheit. GENERAL APPEARANCE: The patient is alert and oriented x 3, in no visible distress, generalized weakness. HEENT AND NECK: Exam within normal limits. CARDIOVASCULAR SYSTEM: Heart rate is regular in rate and rhythm. S1 and S2 normally audible. LUNGS: Somewhat decreased breath sounds. ABDOMEN: Soft, nontender. No obvious organomegaly. Bowel sounds are present. EXTREMITIES: Without significant cyanosis or edema. IMPRESSION AND PLAN: 1. Acute congestive heart failure, which is persistent. I will get Cardiology to evaluate the patient. 2. Moderate protein-calorie malnutrition, albumin level of 2.6. The patient is working with Dietary. 3. Acute pneumonia, resolving with treatment. Dr. New, the cash clerk is following. 4. Acute hyponatremia and hypokalemia from diuresis have resolved. 5. Benign essential hypertension, treated and controlled. CAIO ZAIDI MD CM:PNTRANS [id number] CAIO ZAIDI MD 07/14/18 0721 interface
--- NOTE | ~2018-07-05 | PR ---
[place], [place] PROGRESS NOTE NAME: PAOLO PATEL UNIT #: [id number] ROOM: 408 DOCTOR: SILVIA SINGH MD BIRTHDATE: [birth year] DOS: 07/12/2018 PULMONARY PROGRESS NOTE SUBJECTIVE: She has been comfortably resting, was transferred from Intensive Care Unit to medical floor complaining of fluid retention and edema, shortness of breath has been improving using the BiPAP as ordered. Denies symptoms of fever or chills, coughing has been subsiding. There were no symptoms of abdominal pain. HISTORY OF PRESENT ILLNESS: The patient was noted with general weakness and fatigue. Denies symptoms of nausea, vomiting, diarrhea, abdominal pain, hematemesis, melena, hematochezia, headache, or diplopia. OBJECTIVE: VITAL SIGNS: Normal temperature, respiratory rate 20, heart rate 74, blood pressure 150/90-135/59. Pulse oxygen saturation on 4 liters nasal cannula 91-92% saturation. HEENT: Head was atraumatic. Eyes nonicterus. NECK: Supple. CARDIOVASCULAR: S1, S2 audible. LUNGS: Without any wheeze or crackles at this time. Breaths are noted mildly diminished bilaterally. ABDOMEN: Soft, nontender. EXTREMITIES: The patient was noted mild edema. VISIBLE SKIN: No lesions or rashes. CENTRAL NERVOUS SYSTEM: Nonfocal. MUSCULOSKELETAL: Without any acute deformities. Generalized weakness was noted. IMPRESSION: 1. The patient with resolving acute on chronic hypercapnic hypoxic respiratory failure, exacerbation of chronic obstructive pulmonary disease progressively. 2. Preferred fluid retention as well. 3. Acute pneumonia. The patient is responding to the treatment. 4. The patient with overall severe debility still remains persistent. PLAN OF MANAGEMENT: Continue the BiPAP with oxygen supplementation. Ordered repeat lab as well as chest x-ray to assess the progression of the pneumonia. Start the patient on oral Lasix for the potassium to help overcome the fluid retention. Physical therapy and occupation therapy will be beneficial as well. Other additional treatment changes will be made based on progression of the illness. [place], [place] PROGRESS NOTE NAME: PAOLO PATEL UNIT #: [id number] ROOM: 408 DOCTOR: SILVIA SINGH MD BIRTHDATE: [birth year] SILVIA FROST MD CM:PNTRANS [phone] SILVIA DELGADO MD 07/12/18 1338 interface
--- NOTE | ~2018-07-05 | PR ---
[place], [place] PROGRESS NOTE NAME: PAOLO PATEL UNIT #: [id number] ROOM: 408 DOCTOR: SANTOSH DELGADO MD,SILVIA BIRTHDATE: [birth year] DOS: 07/17/2018 PULMONARY PROGRESS NOTE SUBJECTIVE: The patient was noted comfortable at this time, resting in the bed, was planned for discharge today. Denies symptoms of fever or chills or hemoptysis. OBJECTIVE: VITAL SIGNS: Normal temperature, respiratory rate 20, heart rate 103, blood pressure 118/58, pulse oxygen saturation was recorded 2 liters on nasal cannula 94% saturation. HEENT: Head was atraumatic. Eyes nonicterus. NECK: Supple. CARDIOVASCULAR: S1, S2 audible. LUNGS: Noted without any wheezing or crackles at the present time. Breaths are noted mildly decreased in the left lower lung. ABDOMEN: Soft, nontender. Bowel sounds present. EXTREMITIES: No acute change. IMPRESSION: The patient with small remaining residual pleural fluid, resolving. Acute exacerbation of chronic obstructive pulmonary disease, acute congestive heart failure with respiratory failure. PLAN OF MANAGEMENT: The patient has been assessed for home oxygen, will be going home on 4 L nasal cannula. In the meantime, the patient will be continued on current plan of management at this time without any changes. Discharge planning and the medication has been already completed by Dr. Surekha Sargent. Outpatient followup was suggested upon discharge in the next couple of weeks. SILVIA FROST MD CM:PNTRANS [phone] SILVIA DELGADO MD 07/18/18 0111 interface
[~2018-07-05 12:00] MED LIST: AMOXICILLIN500 M2 PO
[2018-07-05] MEDS ORDERED: QUINAPRIL40 MG PO (12:43)
[2018-07-05] MEDS ORDERED: DILTIAZEM HCL240 M1 PO (12:43)
[2018-07-05 12:44] LABS: ACT PARTIAL THROMBO TIME 30.9 SECONDS (20.8-31.5)
[2018-07-05] MEDS ORDERED: TRIAMTERENE & H1 CAP PO (12:44)
[2018-07-05 12:53] LABS: BASO % 0.2 % (0.0-1.0); EOS % 0.2 % (1.0-4.0); HEMATOCRIT 46.6 % (37.0-47.0); HEMOGLOBIN 15.8 g/dl (12.0-16.0); LYMPH # 1.8 10*3/uL (1.3-4.4); LYMPH % 13.4 % (27.0-41.0); MEAN CELL VOLUME 85.7 fl (81.0-99.0); MEAN CORPUSCULAR HGB CONC 33.9 g/dl (33.0-37.0); MEAN PLATELET VOLUME 9.1 fl (9.6-12.3); MONO # 0.9 10*3/uL (0.1-1.0); MONO % 6.3 % (3.0-9.0); NEUT # 10.8 10*3/uL (2.3-7.9); NEUT % 79.5 % (47.0-73.0); PLATELET COUNT AUTOMATED 312 10*3/uL (130-400); RED BLOOD COUNT 5.44 10*6/uL (4.10-5.10); RED CELL DISTRI WIDTH 13.7 % (0-14.5); WHITE BLOOD COUNT 13.6 10*3/uL (4.8-10.8)
[2018-07-05 13:05] LABS: ALBUMIN 3.4 gm/dl (3.1-4.5); ALKALINE PHOSPHATASE 143 U/L (45-117); BUN 9 mg/dl (7-24); CHLORIDE 82 mmol/L (98-107); CREATININE 0.58 mg/dL (0.55-1.02); POTASSIUM 3.1 mmol/L (3.5-5.1); SGOT/AST 13 IU/L (3-35); SGPT/ALT 16 U/L (12-78); TOTAL PROTEIN 7.9 gm/dL (6.4-8.2)
[2018-07-05 13:09] LABS: TROPONIN I < 0.015 ng/ml (<0.045)
[2018-07-05 13:10] LABS: SODIUM 118 mmol/L (136-145)
--- NOTE | 2018-07-05 13:18 | NUR ---
DR COTA MADE AWARE OF 118 SODIUM. KHAI ESTRADA RN.
--- NOTE | 2018-07-05 13:21 | NUR ---
PT STATES SHE DOES NOT HAVE TO VOID. KHAI ESTRADA RN.
[2018-07-05] MEDS ORDERED: SIMVASTATIN10 MG PO (13:25)
[2018-07-05 14:05] LABS: BILIRUBIN NEGATIVE (NEGATIVE); BLOOD NEGATIVE (NEGATIVE); CLARITY CLEAR (CLEAR); COLOR YELLOW (YELLOW); GLUCOSE NEGATIVE (NEGATIVE); KETONE 1+ (NEGATIVE); LEUKO ESTERASE NEGATIVE (NEGATIVE); NITRITE NEGATIVE (NEGATIVE); UROBILINOGEN 0.2 E.U./dl (0.2-1.0)
[2018-07-05 14:13] LABS: BACTERIA 1+
--- NOTE | 2018-07-05 14:15 | NUR ---
A 73, admitted to , under the services of Dr. DYAN SEVILLA,CAIO Nolan with a diagnosis of FACIAL CELLULITIS, HYPONATREMIA. Chief complaint is SWELLING TO LEFT FACE. Patient arrived via bed from ER. Monitor applied. Initial assessment completed. Vital signs taken and recorded. DR. DYAN SEVILLA,CAIO Nolan notified of admission to the unit. Orders received. See assessment for past medical history, medications and allergies. Patient and/or family oriented to unit. [facility] visitation policy reviewed. Clothing/patient valuable form completed. DELMIS HARDWICK
--- NOTE | 2018-07-05 16:11 | NUR ---
PT MEDICATED WITH IV ZOFRAN AT THIS TIME PER ORDER FOR COMPLAINTS OF NAUSEA. WILL MONITOR.
--- NOTE | 2018-07-05 19:15 | NUR ---
PT MEDICATED WITH DILAUDID PER PRN ORDER FOR COMPLAINTS OF 8/10 ABD PAIN. ALSO GIVEN PHENERGAN PER ORDER FOR COMPLAINTS OF PERSISTENT NAUSEA. WILL MONITOR FOR EFFECTIVENESS.
--- NOTE | 2018-07-05 20:00 | NUR ---
PRN MEDICATION EFFECTIVE. PATIENT RESTING AND APPEARS COMFORTABLE.
--- NOTE | 2018-07-05 23:40 | NUR ---
[id number] SLEEPING. DID NOT AWAKEN TO VERBAL OR TOUCH STIMULI. SKIN COOL SWEATY. BEDSIDE GLUCOSE DONE RESULT 80. WHEEZING NOTED. O2 2L IN USE. PT. STIRRED BUT DID NOT AWAKEN FULLY WITH ASSESSMENT OR GLUCOSE CHECK. WENT GOT VITAL SIGN MACHINE AND PATIENT FINALLY AWOKE AND SPOKE WITH ME. PT. ALERT AND ORIENTED X3. STATED SHE HADN'T SLEPT FOR DAYS AND THAT HER STOMACHE HURT HER SO BAD THAT SHE COULDN'T SLEEP BUT SHE FEELS BETTER.
--- NOTE | 2018-07-05 23:41 | NUR ---
24 HR chart check completed.
[2018-07-06] VITALS: BP 114/84
[2018-07-06 06:27] LABS: BASO % 0.4 % (0.0-1.0); EOS % 0.4 % (1.0-4.0); HEMATOCRIT 43.2 % (37.0-47.0); HEMOGLOBIN 14.4 g/dl (12.0-16.0); LYMPH # 2.8 10*3/uL (1.3-4.4); LYMPH % 28.7 % (27.0-41.0); MEAN CORPUSCULAR HGB 29.8 pg (27.0-31.0); MEAN CORPUSCULAR HGB CONC 33.3 g/dl (33.0-37.0); MEAN PLATELET VOLUME 9.1 fl (9.6-12.3); MONO # 1.2 10*3/uL (0.1-1.0); MONO % 12.3 % (3.0-9.0); NEUT # 5.6 10*3/uL (2.3-7.9); NEUT % 57.9 % (47.0-73.0); PLATELET COUNT AUTOMATED 280 10*3/uL (130-400); RED BLOOD COUNT 4.83 10*6/uL (4.10-5.10); RED CELL DISTRI WIDTH 14.1 % (0-14.5); WHITE BLOOD COUNT 9.7 10*3/uL (4.8-10.8)
[2018-07-06 06:32] LABS: BUN 10 mg/dl (7-24); CHLORIDE 93 mmol/L (98-107); CREATININE 0.61 mg/dL (0.55-1.02); POTASSIUM 3.7 mmol/L (3.5-5.1); SODIUM 128 mmol/L (136-145)
[2018-07-06 06:43] LABS: MEAN CELL VOLUME 89.4 fl (81.0-99.0)
[2018-07-06] MEDS ORDERED: OMEPRAZOLE20 M2 PO (07:19)
[2018-07-06 08:00] VITALS: BP 112/60
--- NOTE | 2018-07-06 09:00 | NUR ---
Manager Personal in to see patient. She is currently not in her room. Will follow up at later time.
--- NOTE | 2018-07-06 10:43 | NUR ---
PHYSICAL THERAPY PAtient reports She has no PT needs. PAtient reports She is 100 % (I) WITH ALL MOBILITY AND FEELING 100 % BETTER THEN UPON ADMITT. Thank you for this referral. Amanda Mary,PT
[2018-07-06 12:00] VITALS: BP 115/65
--- NOTE | 2018-07-06 15:00 | NUR ---
Vp Celebrity [employer] in to talk to patient. Patient states lives at home with her granddaughter. There are 16 steps in the home. Physician: Dr. Niranjan Goss [facility]: [facility] Home health services: none Patient's level of ADLs: INDEPENDENT Patient has working utilities: yes DME: none Follow-up physician's appointment after d/c: she prefers to make her own follow up appt after discharge Does patient want to access PORTAL?: no Discharge plan discussed with patient. She lives at home with her granddaughter. She is independent in her ADLs and ambulation. Discussed home health care services and she denies any home needs at this time. When medically stable she will be discharged to home. SIMRAN FRANCO
[2018-07-06 16:00] VITALS: BP 112/44
[2018-07-06 20:00] VITALS: BP 121/59
--- NOTE | 2018-07-06 23:11 | NUR ---
Shift chart check completed.
[2018-07-07] VITALS: BP 90/42
--- NOTE | 2018-07-07 00:41 | NUR ---
DILAUDID GIVEN PER PT'S C/O BACK PAIN. ALL SAFETY MEASURES IN PLACE.
[2018-07-07 00:42] VITALS: BP 112/60
--- NOTE | 2018-07-07 01:12 | NUR ---
DILAUDID APPEARS EFFECTIVE. PT SLEEPING; RESP EASY AND REGULAR ON 2L NC. BED IN LOWEST, LOCKED POS, CALL LIGHT IN HAND.
[2018-07-07 07:04] LABS: BUN 13 mg/dl (7-24); CHLORIDE 102 mmol/L (98-107); SODIUM 137 mmol/L (136-145)
[2018-07-07 07:05] LABS: POTASSIUM 4.7 mmol/L (3.5-5.1)
[2018-07-07 08:00] VITALS: BP 104/50; BP 124/58
--- NOTE | 2018-07-07 09:00 | NUR ---
Electric Meter Repairer Apprentice in to see patient. No new needs or request at this time. She denies any home needs. When medically stable she will be discharged to home.
--- NOTE | 2018-07-07 10:00 | NUR ---
PATIENT ASLEEP AT THIS TIME. APPEARS COMFORTABLE WITH CALL LIGHT IN REACH
[2018-07-07 12:00] VITALS: BP 106/57; BP 119/56
[2018-07-07 16:00] VITALS: BP 95/51
--- NOTE | 2018-07-07 16:00 | NUR ---
PATIENT AWAKE AND ALERT. ORIENTED X3. DENIES PAIN OR NAUSEA AT THIS TIME. ABD SOFT & NONTENDER. SLIGHT SWELLING STLL NOTED TO LEFT FACE BUT PATIENT STATES ONLY PAINFUL WHEN PALPATED. NO NEEDS AT THIS TIME. CALL LIGHT IN REACH
[2018-07-07 20:00] VITALS: BP 123/53
[2018-07-08] VITALS: BP 95/72
[2018-07-08 07:07] LABS: BUN 10 mg/dl (7-24); CHLORIDE 101 mmol/L (98-107); CREATININE 0.65 mg/dL (0.55-1.02); POTASSIUM 4.8 mmol/L (3.5-5.1); SODIUM 136 mmol/L (136-145)
--- NOTE | 2018-07-08 11:38 | NUR ---
PT VERY LETHARGIC. DIFFICULT TO AROUSE. PO2 86% WITH 3L O2 NC. CALLED DR ZAIDI. ORDERS RECEIVED.
--- NOTE | 2018-07-08 11:54 | NUR ---
SPOKE TO DR FROST REGARDING NEW PT CONSULT. ORDER FOR STAT ABG RECEIVED
--- NOTE | 2018-07-08 11:57 | NUR ---
PTS DAUGHTER CALLED TO CHECK ON HER. I INFORMED HER OF PTS CONDITION. SHE VOICED UNDERSTANDING. SHE STATED SHE WILL BE COMING IN SHORTLY
[2018-07-08 12:06] LABS: ABG BASE EXCESS 0.2 mmol/L (-2.0-2.0); ABG HCO3 27.7 mmol/l (22-26); ARTERIAL BLOOD GAS PCO2 60.4 mmHg (35-45); ARTERIAL BLOOD GAS PH 7.281 (7.35-7.45); ARTERIAL BLOOD GAS PO2 64.7 mmHg (80-90)
--- NOTE | 2018-07-08 12:18 | NUR ---
PT TRANSFERRED TO ICU PER DR. GARCIA. REPORT GIVEN TO CATHY. PATIENT RESTING COMFORTABLY DURING TRANSFER, NO DISTRESS.
[2018-07-08 12:20] VITALS: BP 123/52
--- NOTE | 2018-07-08 12:20 | NUR ---
PATIENT TRANSFERRED BACK TO UNIT AT THIS TIME. PATIENT IN STABLE CONDITION, AWAKE, ALERT AND COOPERATIVE WITH CARE. PATIENT PO2 SATURATION REMAINS 92-94% ON 3 LITERS NASAL CANNULA. PATIENT REQUESTING SOMETHING TO EAT AND BEDSIDE COMMODE. PATIENT ASSISTED TO BEDSIDE COMMODE AND BACK TO BED WITHOUT DIFFICULTY. PATIENT ASSESSMENT DONE AT THIS TIME. SEE ASSESSMENT SCREEN. CALL LIGHT WITHIN REACH. RN WILL CONTINUE TO MONITOR
--- NOTE | 2018-07-08 12:41 | NUR ---
SPOKE WITH DR FROST REGARDING ABG RESULTS. ORDERS RECIEVED
--- NOTE | 2018-07-08 13:00 | NUR ---
BIPAP PLACED ONTO PATIENT AT THIS TIME. SETTING 15/02 40%. WILL REPEAT ABGS PER KAMILA MOSCOSO ORDERS AFTER PATIENT WEARS BIPAP FOR 2HRS
[2018-07-08 15:19] LABS: ABG HCO3 26.6 mmol/l (22-26); ARTERIAL BLOOD GAS PCO2 55.8 mmHg (35-45); ARTERIAL BLOOD GAS PH 7.302 (7.35-7.45)
--- NOTE | 2018-07-08 15:49 | NUR ---
AGATA CALLED TO DR FROST
[2018-07-08 16:00] VITALS: BP 156/68
--- NOTE | 2018-07-08 17:09 | NUR ---
UP TO RECLINER
--- NOTE | 2018-07-08 19:15 | NUR ---
CHART CHECK COMPLETE.
[2018-07-08 20:00] VITALS: BP 136/50
[2018-07-09] VITALS: BP 127/40
--- NOTE | 2018-07-09 00:23 | NUR ---
TYLENOL AT 2300 PER PT REQUEST FOR HEADACHE APPEARS TO BE EFFECTIVE. PT HAS BEEN SLEEPING, BODY RELAXED. HAS BEEN ON BIPAP SINCE 2314.
--- NOTE | 2018-07-09 03:20 | NUR ---
PT INSISTS ON DILAUDID ORDERED FOR COMPLAINTS OF NECK, BACK, LEGS AND FEET PAIN DESPITE ATTEMPTS TO PROVIDE COMFORT.
--- NOTE | 2018-07-09 03:45 | NUR ---
PT DOZING. AWAKENS TO VOICE. STATES DILAUDID EFFECTIVE FOR PAIN. POSITIONS SELF IN BED. BIPAP REMAINS ON AND FUNCTIONAL.
--- NOTE | 2018-07-09 05:08 | NUR ---
ASSISTED UP TO BSC TO VOID AND ASSISTED BACK TO BED. BIPAP ON.
[2018-07-09 06:52] LABS: BUN 7 mg/dl (7-24); CHLORIDE 101 mmol/L (98-107); CREATININE 0.55 mg/dL (0.55-1.02); SODIUM 138 mmol/L (136-145)
--- NOTE | 2018-07-09 06:52 | NUR ---
PT WORE BIPAP FROM 2330 TO 0550 AND PLACED BACK ON NC3. SHE IS ALERT, ORIENTED AND APPROPRIATE.
--- NOTE | 2018-07-09 07:00 | NUR ---
RESTING QUIETLY IN BED, BIPAP OFF, WATCHING TV, LUNGS WITH I/E WHEEZES IV SITE ASYMPT
[2018-07-09 07:11] LABS: POTASSIUM 3.8 mmol/L (3.5-5.1)
[2018-07-09 07:56] LABS: ABG BASE EXCESS 1.1 mmol/L (-2.0-2.0); ABG HCO3 28.1 mmol/l (22-26); ABG O2 SATURATION 92.5 % (95-97); ARTERIAL BLOOD GAS PCO2 57.1 mmHg (35-45); ARTERIAL BLOOD GAS PH 7.311 (7.35-7.45); ARTERIAL BLOOD GAS PO2 64.8 mmHg (80-90)
[2018-07-09 08:00] VITALS: BP 156/85
--- NOTE | 2018-07-09 08:18 | NUR ---
TYLENOL FOR HEADACHE
--- NOTE | 2018-07-09 08:34 | NUR ---
AGATA CALLED TO DR FROST AND HE WAS UPDATED ON PT CONDITION
--- NOTE | 2018-07-09 10:00 | NUR ---
TYLENOL EFFECTIVE FOR HEADACHE RELIEF
--- NOTE | 2018-07-09 11:30 | NUR ---
IN RECLINER, BIPAP TAKNE OFF FOR LUNCH, NC 4L ON PT WILL FALL ASLEEP IN THE BLINK OF AN EYE, STATES SHE IS REALLY "TIRED" PT INSTRUCTED THAT SHE WILL NEED THE BIPAP BACK ON IF SHE IS UNABLE TO STAY AWAKE
[2018-07-09 12:00] VITALS: BP 121/62
--- NOTE | 2018-07-09 12:00 | NUR ---
TO BSC FOR LARGE BM, PT HAS BEEN FULLY AWAKE AFTER USING BSC
--- NOTE | 2018-07-09 13:32 | NUR ---
IN RECLINER, EATING, HAS HAD NO FURTHER TROUBLE STAYING AWAKE
[2018-07-09 15:31] LABS: ABG BASE EXCESS -1.4 mmol/L (-2.0-2.0); ABG HCO3 24.9 mmol/l (22-26); ABG O2 SATURATION 94.2 % (95-97); ARTERIAL BLOOD GAS PCO2 49.8 mmHg (35-45); ARTERIAL BLOOD GAS PH 7.316 (7.35-7.45); ARTERIAL BLOOD GAS PO2 73.3 mmHg (80-90)
[2018-07-09 16:00] VITALS: BP 127/46
[2018-07-09 20:00] VITALS: BP 157/72
[2018-07-10] VITALS: BP 141/68
--- NOTE | 2018-07-10 00:21 | NUR ---
RESTING IN BED WITH EYES CLOSED. APPEARS TO BE SLEEPING. BIPAP INTACT. PULSE OX 96%. IV FLUIDS CONT. NO C/O'S PAIN VOICED. NO DISTRESS NOTED.
--- NOTE | 2018-07-10 03:08 | NUR ---
0050 DILAUID 1MG IV GIVEN FOR C/O'S BACK PAIN. WILL MONITOR 0200 EARLIER PAIN MED EFFECTIVE. RESTING IN BED WITH EYES CLOSED.
[2018-07-10 04:00] VITALS: BP 129/59
--- NOTE | 2018-07-10 04:53 | NUR ---
0445 BIPAP REMOVED WI REQUEST. PLACED BACK ON NC. TYLENOL 2 PO GIVEN FOR C/O'S H/A. WILL MONITOR.
--- NOTE | 2018-07-10 06:10 | NUR ---
EARLIER [id number] EFFECTIVE. SITTING UP ON THE SIDE OF THE BED. IV FLUIDS CONT. CONDITION GUARDED.
[2018-07-10 07:32] LABS: ABG BASE EXCESS 2.3 mmol/L (-2.0-2.0); ABG HCO3 27.3 mmol/l (22-26); ABG O2 SATURATION 95.7 % (95-97); ARTERIAL BLOOD GAS PCO2 45.5 mmHg (35-45); ARTERIAL BLOOD GAS PH 7.393 (7.35-7.45); ARTERIAL BLOOD GAS PO2 73.1 mmHg (80-90)
--- NOTE | 2018-07-10 07:45 | NUR ---
Arterial blood gases drawn from right radial after 4 attempt. The procedure was explained to the patient. The Jaskaran's test was performed with satisfactory results. The artery was palpated. [id number] prep to site. The specimen was obtained and sent to the lab on ice. Digital pressure applied x 5 minutes. Pressure dressing applied. No bleeding or hematoma. Pulses equal bilaterally. ROGEL
[2018-07-10 08:00] VITALS: BP 144/58
--- NOTE | 2018-07-10 08:11 | NUR ---
PT NOT ON BIPAP AT THIS TIME
--- NOTE | 2018-07-10 08:12 | NUR ---
PT AAOX3. VSS. RESP EASY ON 4L NC. LUNG FIEDLS DIM. PT HAS OCCASIONAL DRY COUGH. ABD. SOFT WITH ACTIVE BOWEL SOUNDS. NO PERIPHERAL EDEMA NOTED AT THIS TIME. NO ACUTE DISTRESS NOTED AT THIS TIME.
--- NOTE | 2018-07-10 11:01 | NUR ---
DR FROST CALLED IN AND WAS UPDATED ON AM ABG'S. NO NEW ORDERS.
--- NOTE | 2018-07-10 11:20 | NUR ---
PT AWAKENED FOR VITALS AND AND TO SEE IF PT IS READY FOR LUNCH. PT IS SLIGHTLY DIFFICULT TO AROUSSE AND REMAINS GROGGY THROUGHOUT ASSESMENT. PT STATES SHE IS NOT HUNGRY AT THIS TIME...SHE WANTS TO SLEEP LONGER. BIPAP APPLIED TO PT WITH PREVIOUS SETTINGS. WILL CONTINUE TO MONITOR PT.
--- NOTE | 2018-07-10 11:48 | NUR ---
RN PLACED PT ON BIPAP
[2018-07-10 12:00] VITALS: BP 121/53
--- NOTE | 2018-07-10 13:13 | NUR ---
DR ZAIDI IN TO SEE PT. UPDATED HIM ON PT'S CONDITION.
--- NOTE | 2018-07-10 13:16 | NUR ---
PT CONTIUES TO REST.
--- NOTE | 2018-07-10 14:11 | NUR ---
PT AWOKEN FOR LUNCH. PT AGAIN HARD TO AROUSE AT FIRST AND NOT ANSWERING QUESTIONS WELL. ONCE PT WAS AWAKE FOR A FEW MINUTES SHE DID RESPOND APPROPRIATELY. PT UP TO BSC AND BACK TO BEDSIDE WITH VERY LITTLE ASSISTANCE. PT NOW EATING LUNCH. WILL CONTINUE TO MONITOR PT.
--- NOTE | 2018-07-10 14:40 | NUR ---
DR FROST IN TO SEE PT.
--- NOTE | 2018-07-10 15:40 | NUR ---
PT NOT ON BIPAP AT THIS TIME
[2018-07-10 16:00] VITALS: BP 127/55
--- NOTE | 2018-07-10 16:15 | NUR ---
PT VISITNG WITH FAMILY. PT DENIES COMPLAINTS AT THIS TIME. NO ACUTE DISTRESS NOTED.
--- NOTE | 2018-07-10 17:05 | NUR ---
PT UP TO CHAIR. SHE IS TOLERATING IT WELL.
[2018-07-10 20:00] VITALS: BP 147/74
--- NOTE | 2018-07-10 20:15 | NUR ---
0 REMAINS UP IN CHAIR AT BEDSIDE. ALERT AND PLEASANT. PULSE OX 94% ON 4L. NO C/O'S VOICED. IV FLUIDS CONT. NO DISTRESS NOTED.
--- NOTE | 2018-07-10 21:49 | NUR ---
2100 TYLENOL 2 PO GIVEN FOR C/O'S H/A. WILL MONITOR.
--- NOTE | 2018-07-10 22:06 | NUR ---
EARLIER TYLENOL EFFECTIVE. RESTING IN BED WITH EYES CLOSED.
[2018-07-11] VITALS: BP 124/53
--- NOTE | 2018-07-11 00:16 | NUR ---
RESTING IN BED WITH EYES CLOSED. APPEARS TO BE SLEEPING. BIPAP INTACT. PULSE OX 94% ON 40% FIO2. IV FLUIDS CONT. NO DISTRESS NOTED.
--- NOTE | 2018-07-11 01:50 | NUR ---
DILAUDID 1MG IV GIVEN FOR C/O'S SEVERE BACK PAIN. WILL MONITOR.
--- NOTE | 2018-07-11 02:13 | NUR ---
EARLIER PAIN MED EFFECTIVE. RESTING IN BED WITH EYES CLOSED.
[2018-07-11 04:00] VITALS: BP 137/66
--- NOTE | 2018-07-11 04:14 | NUR ---
BIPAP REMOVED PER REQUEST. TYLENOL 2 PO GIVEN FOR C/O'S CONT BACK PAIN. WILL MONITOR.
--- NOTE | 2018-07-11 04:30 | NUR ---
Pt taken off of NIV at this time
--- NOTE | 2018-07-11 05:16 | NUR ---
EARLIER TYLENOL SL EFFECTIVE. RESTING IN BED WATCHING TV.
--- NOTE | 2018-07-11 06:09 | NUR ---
02 INTACT VIA NC. IV FLUIDS MAINTAINED. NO FURTHER C/O'S VOICED. CONDITION GUARDED.
--- NOTE | 2018-07-11 07:50 | NUR ---
COMPLAINS OF SHORTNESS OF BREATH. PULSE OX 94% ON 4L NASAL CANNULA. FINE RALES HEARD IN BILATERAL LUNG BASES. 1+ EDEMA NOTED TO BILATERAL LOWER LEGS. NEW IV STARTED IN LEFT ARM. NS INFUSING AT 60CC/HR.
[2018-07-11 08:00] VITALS: BP 124/64
[2018-07-11 12:00] VITALS: BP 121/67
[2018-07-11 16:00] VITALS: BP 137/66
[2018-07-11 19:59] VITALS: BP 148/74
--- NOTE | 2018-07-11 20:48 | NUR ---
PATIENT REFUSED TO GET WASHED UP SOY STATED THAT SHE JUST DOES NOT HAVE THE ENERGY.
--- NOTE | 2018-07-11 20:49 | NUR ---
PATIENT GIVEN TYLENOL FOR BACK PAIN AND HEADACHE PER PRN ORDER.
[2018-07-12] VITALS: BP 135/59
--- NOTE | 2018-07-12 01:09 | NUR ---
Pt placed on BiPap 18/10 at 40%. Alarms checked and on.
--- NOTE | 2018-07-12 07:19 | NUR ---
ASSISTED UP TO BSC - C/O FEELIING FLUID OVERLOADED - ASKING IF THEY WILL RESTART LASIX - NURSE WILL CHECK
[2018-07-12] MEDS ORDERED: TRIAMTERENE-HC1 EACH PO (07:21)
--- NOTE | 2018-07-12 07:37 | NUR ---
Shift chart check completed.
[2018-07-12 08:00] VITALS: BP 150/80
--- NOTE | 2018-07-12 09:41 | NUR ---
AMBULATED TO BATHROOM ON ROOM AIR
--- NOTE | 2018-07-12 10:59 | NUR ---
DR ZAIDI CALLED WITH PT REQUEST ABOUT HER MED FOR FLUID. ORDER FOR CXR PRIOR TO DECIDING
--- NOTE | 2018-07-12 11:00 | NUR ---
Core Carrier in to see patient. Discussed home health care services and short term SNF especially since she spent a little time in the ICU. She denies any home needs at this time and refuses short term SNF. When medically stable she will be discharged to home.
--- NOTE | 2018-07-12 11:23 | NUR ---
3 UNSUCCESSFUL ATTEMPTS AT STARTING A NEW IV. BLOOD WAS OBTAINED ON EACH BUT VEIN BLEW WHEN ATTEMPTED TO ADVANCE. CXR AFTER IV ESTABLISHED
[2018-07-12 12:00] VITALS: BP 156/65
--- NOTE | 2018-07-12 12:32 | NUR ---
NO EFFECT FROM DULCOLAX - MIRALAX GIVEN FOR STOMACH PAIN BUT NO BOWEL MVT
[2018-07-12 13:46] LABS: BASO % 0.1 % (0.0-1.0); EOS # 0.1 10*3/uL (0.0-0.4); EOS % 0.3 % (1.0-4.0); HEMATOCRIT 39.2 % (37.0-47.0); HEMOGLOBIN 12.4 g/dl (12.0-16.0); LYMPH # 0.7 10*3/uL (1.3-4.4); LYMPH % 4.7 % (27.0-41.0); MEAN CELL VOLUME 92.9 fl (81.0-99.0); MEAN CORPUSCULAR HGB 29.4 pg (27.0-31.0); MEAN CORPUSCULAR HGB CONC 31.6 g/dl (33.0-37.0); MEAN PLATELET VOLUME 8.9 fl (9.6-12.3); MONO # 0.6 10*3/uL (0.1-1.0); MONO % 3.8 % (3.0-9.0); NEUT % 89.5 % (47.0-73.0); PLATELET COUNT AUTOMATED 301 10*3/uL (130-400); RED BLOOD COUNT 4.22 10*6/uL (4.10-5.10); RED CELL DISTRI WIDTH 15.4 % (0-14.5); WHITE BLOOD COUNT 15.6 10*3/uL (4.8-10.8)
--- NOTE | 2018-07-12 13:56 | NUR ---
Dr Goss called with CXR results - orders recevied
[2018-07-12 14:16] LABS: ALBUMIN 2.6 gm/dl (3.1-4.5); ALKALINE PHOSPHATASE 108 U/L (45-117); BUN 17 mg/dl (7-24); CHLORIDE 106 mmol/L (98-107); CREATININE 0.84 mg/dL (0.55-1.02); POTASSIUM 4.7 mmol/L (3.5-5.1); SGOT/AST 55 IU/L (3-35); SODIUM 140 mmol/L (136-145); TOTAL PROTEIN 6.6 gm/dL (6.4-8.2)
[2018-07-12 14:22] LABS: SGPT/ALT 146 U/L (12-78)
--- NOTE | 2018-07-12 14:27 | NUR ---
Occupational Therapy evaluation offered this date. Patient to be getting lasix and she did not feel well d/t CHF. OTR will attempt tomorrow. Kathie Crowe OTR/L
[2018-07-12 16:00] VITALS: BP 157/69
--- NOTE | 2018-07-12 18:14 | NUR ---
PER PT FEELING MUCH BETTER, FEET LESS TIGHT AND BREATHING EASIER SINCE LASIX - SHE WAS USING BATHROOM WITHOUT HAT TO MEASURE -
[2018-07-12 20:00] VITALS: BP 168/78
[2018-07-13] VITALS: BP 167/81
[2018-07-13 07:15] LABS: BUN 19 mg/dl (7-24); CHLORIDE 97 mmol/L (98-107); POTASSIUM 4.1 mmol/L (3.5-5.1); SODIUM 137 mmol/L (136-145)
[2018-07-13 07:17] LABS: CREATININE 0.62 mg/dL (0.55-1.02)
[2018-07-13 08:00] VITALS: BP 162/82
--- NOTE | 2018-07-13 08:37 | NUR ---
TYLENOL GIVEN PER ORDER FOR 7 OUT OF 10 HEADACHE PAIN. WILL REASSESS.
--- NOTE | 2018-07-13 09:00 | NUR ---
Motorcycle Tester in to see patient. She is sitting up in the bedside chair. Discussed again home health care services and short term SNF especially since she spent a little time in the ICU. She denies any home needs at this time and refuses short term SNF. When medically stable she will be discharged to home.
--- NOTE | 2018-07-13 09:30 | NUR ---
TYLENOL EFFECTIVE FOR HEADACHE PAIN. PT RESTING COMFORTABLY.
[2018-07-13 12:00] VITALS: BP 146/62
[2018-07-13 16:00] VITALS: BP 148/60; BP 158/67
--- NOTE | 2018-07-13 19:00 | NUR ---
PT AWAKE IN CHAIR IN ROOM DURING BEDSIDE SHIFT REPORT. NO C/O VOICED. PT ENCOURAGED TO WEAR RISHI HOSE TO HELP DECREASE EDEMA AND ELEVATE BLE. PT AGREEABLE. CALL LIGHT IN REACH.
[2018-07-13 20:00] VITALS: BP 149/76; BP 152/62
--- NOTE | 2018-07-13 21:03 | NUR ---
Dr. MCGEE consulted for [facility]. SHE CONTRERAS
[2018-07-14 08:00] VITALS: BP 146/80
--- NOTE | 2018-07-14 09:00 | NUR ---
MEDICATED WITH TYLENOL PER PRN ORDER FOR COMPLAINTS OF HEADACHE. WILL MONITOR FOR EFFECTIVENESS.
--- NOTE | 2018-07-14 11:16 | NUR ---
PT STATES TYLENOL WAS EFFECTIVE FOR HEADACHE FOR RELIEF.
[2018-07-14 12:00] VITALS: BP 127/71
[2018-07-14 16:00] VITALS: BP 148/67
--- NOTE | 2018-07-14 16:18 | NUR ---
PT UPSET AND INQUIRING ABOUT SEEING DR MCGEE- REGARDING CHF. SPOKE WITH DERRICK IN OFFICE, STATES SHE WOULD PAGE DR MCGEE.
--- NOTE | 2018-07-14 16:50 | NUR ---
DR MCGEE IN TO SEE PT AT THIS TIME.
--- NOTE | 2018-07-14 17:06 | NUR ---
MEDICATED WITH ZOFRAN PER PRN ORDER FOR COMPLAINTS OF UPSET STOMACH. WILL MONITOR FOR EFFECTIVENESS.
[2018-07-14 20:00] VITALS: BP 124/55
[2018-07-15] VITALS: BP 126/65
[2018-07-15 07:30] LABS: BASO % 0.1 % (0.0-1.0); EOS # 0.3 10*3/uL (0.0-0.4); EOS % 3.3 % (1.0-4.0); HEMATOCRIT 35.8 % (37.0-47.0); HEMOGLOBIN 11.1 g/dl (12.0-16.0); LYMPH # 2.3 10*3/uL (1.3-4.4); LYMPH % 27.3 % (27.0-41.0); MEAN CELL VOLUME 92.7 fl (81.0-99.0); MEAN CORPUSCULAR HGB 28.8 pg (27.0-31.0); MEAN PLATELET VOLUME 9.5 fl (9.6-12.3); MONO % 11.6 % (3.0-9.0); NEUT # 4.8 10*3/uL (2.3-7.9); NEUT % 57.2 % (47.0-73.0); PLATELET COUNT AUTOMATED 258 10*3/uL (130-400); RED BLOOD COUNT 3.86 10*6/uL (4.10-5.10); RED CELL DISTRI WIDTH 15.3 % (0-14.5); WHITE BLOOD COUNT 8.4 10*3/uL (4.8-10.8)
[2018-07-15 07:59] LABS: ALBUMIN 2.2 gm/dl (3.1-4.5); BUN 16 mg/dl (7-24); CHLORIDE 95 mmol/L (98-107); CREATININE 0.62 mg/dL (0.55-1.02); POTASSIUM 3.5 mmol/L (3.5-5.1); SGOT/AST 9 IU/L (3-35); SGPT/ALT 59 U/L (12-78); SODIUM 139 mmol/L (136-145); TOTAL PROTEIN 5.3 gm/dL (6.4-8.2)
[2018-07-15 08:00] VITALS: BP 136/65
[2018-07-15 08:00] LABS: ALKALINE PHOSPHATASE 78 U/L (45-117)
--- NOTE | 2018-07-15 09:00 | NUR ---
Supervisor Cooler Service in to see patient. She is currently having an echo done at the bedside. Will follow up at a later time.
--- NOTE | 2018-07-15 10:54 | NUR ---
Occupational Therapy referral received and screen completed. Patient denies need for OT at this time. She reports she is independent in ADLs and mobility. Discharge OT referral. Thank you. Kathie Crowe OTR/vik
[2018-07-15 12:00] VITALS: BP 122/58
--- NOTE | 2018-07-15 12:24 | NUR ---
PATIENT REQUESTING PAIN MEDICATION FOR HEADACHE. TYLENOL ADMINISTERED PRESCRIBED. WILL MONITOR FOR EFFECTIVENESS.
--- NOTE | 2018-07-15 13:25 | NUR ---
PATIENT STATES THAT TYLENOL WAS EFFECTIVE FOR HEADACHE.
--- NOTE | 2018-07-15 15:10 | NUR ---
Garden Tractor Mechanic in to see patient. She is sitting up in her bedside chair. Discussed short term SNF and home health care services and she denies both services at this time. When medically stable she will be discharged to home.
[2018-07-15 16:00] VITALS: BP 143/73
[2018-07-15 20:00] VITALS: BP 121/59
[2018-07-16] VITALS: BP 118/51
[2018-07-16 06:58] LABS: BASO % 0.2 % (0.0-1.0); EOS # 0.3 10*3/uL (0.0-0.4); EOS % 2.4 % (1.0-4.0); HEMATOCRIT 37.9 % (37.0-47.0); HEMOGLOBIN 11.9 g/dl (12.0-16.0); LYMPH # 2.2 10*3/uL (1.3-4.4); LYMPH % 16.6 % (27.0-41.0); MEAN CELL VOLUME 91.1 fl (81.0-99.0); MEAN CORPUSCULAR HGB 28.6 pg (27.0-31.0); MEAN CORPUSCULAR HGB CONC 31.4 g/dl (33.0-37.0); MEAN PLATELET VOLUME 9.7 fl (9.6-12.3); MONO # 1.3 10*3/uL (0.1-1.0); NEUT # 9.3 10*3/uL (2.3-7.9); NEUT % 70.3 % (47.0-73.0); PLATELET COUNT AUTOMATED 306 10*3/uL (130-400); RED BLOOD COUNT 4.16 10*6/uL (4.10-5.10); WHITE BLOOD COUNT 13.3 10*3/uL (4.8-10.8)
[2018-07-16 07:29] LABS: ALBUMIN 2.5 gm/dl (3.1-4.5); ALKALINE PHOSPHATASE 93 U/L (45-117); BUN 22 mg/dl (7-24); CHLORIDE 91 mmol/L (98-107); CREATININE 0.67 mg/dL (0.55-1.02); POTASSIUM 3.3 mmol/L (3.5-5.1); SGOT/AST 11 IU/L (3-35); SGPT/ALT 52 U/L (12-78); SODIUM 137 mmol/L (136-145); TOTAL PROTEIN 6.1 gm/dL (6.4-8.2)
--- NOTE | 2018-07-16 07:31 | NUR ---
NOTIFIED DR ZAIDI OF POTASSIUM 3.3, ORDER RECIEVED. ALSO INFORMED HIM OF CHRONIC CRITICAL CO2 OF 41 AT THIS TIME.
[2018-07-16 08:00] VITALS: BP 100/58
[2018-07-16 12:00] VITALS: BP 120/59
--- NOTE | 2018-07-16 12:50 | NUR ---
DR FROST ROUNDED AND SEEN PT.NO NEW ORDERS.CLEARED FOR D/C ON HIS END.
--- NOTE | 2018-07-16 14:35 | NUR ---
DR MCGEE ROUNDED. NO NEW ORDERS. PER DR MCGEE PT CLEARED FOR D/C FROM CARDIOLOGY POINT OF VIEW.
[2018-07-16 16:00] VITALS: BP 123/64
--- NOTE | 2018-07-16 17:55 | NUR ---
PT UP IN CHAIR AT BEDSIDE.RESPS EASY ON 2.5LNC.VOICES NO NEEDS AT THIS TIME. CALL LIGHT IN REACH.
[2018-07-16 20:00] VITALS: BP 119/59
--- NOTE | 2018-07-16 20:06 | NUR ---
PATIENT MEDICATED AT THIS TIME FOR C/O HEADACHE AND GAS. PATIENT GIVE TYLENOL AND TUMS. WILL MONITOR
--- NOTE | 2018-07-16 21:06 | NUR ---
TUMS AND TYLENOL EFFECTIVE
--- NOTE | 2018-07-16 23:09 | NUR ---
PT. REFUSED BIPAP TONIGHT, STATES SHE IS GOING HOME AND DOES NOT USE A BIPAP.
[2018-07-17] VITALS: BP 129/48
--- NOTE | 2018-07-17 06:46 | NUR ---
PATIENT MEDICATED WITH TYLENOL FOR C/ OHEADACHE. WILL MONITOR
[2018-07-17 07:04] LABS: BASO % 0.1 % (0.0-1.0); EOS # 0.2 10*3/uL (0.0-0.4); EOS % 1.4 % (1.0-4.0); HEMATOCRIT 42.4 % (37.0-47.0); HEMOGLOBIN 13.8 g/dl (12.0-16.0); LYMPH # 0.4 10*3/uL (1.3-4.4); LYMPH % 2.9 % (27.0-41.0); MEAN CELL VOLUME 90.6 fl (81.0-99.0); MEAN CORPUSCULAR HGB 29.5 pg (27.0-31.0); MEAN CORPUSCULAR HGB CONC 32.5 g/dl (33.0-37.0); MEAN PLATELET VOLUME 9.5 fl (9.6-12.3); MONO # 1.2 10*3/uL (0.1-1.0); MONO % 8.1 % (3.0-9.0); NEUT # 12.4 10*3/uL (2.3-7.9); NEUT % 86.9 % (47.0-73.0); PLATELET COUNT AUTOMATED 359 10*3/uL (130-400); RED BLOOD COUNT 4.68 10*6/uL (4.10-5.10); RED CELL DISTRI WIDTH 15.1 % (0-14.5); WHITE BLOOD COUNT 14.3 10*3/uL (4.8-10.8)
[2018-07-17] MEDS ORDERED: LASIX40 MG PO (07:28)
[2018-07-17] MEDS ORDERED: ALDACTONE25 MG PO (07:28)
[2018-07-17 07:31] LABS: ALBUMIN 2.9 gm/dl (3.1-4.5); ALKALINE PHOSPHATASE 130 U/L (45-117); BUN 19 mg/dl (7-24); CHLORIDE 91 mmol/L (98-107); CREATININE 0.84 mg/dL (0.55-1.02); POTASSIUM 3.6 mmol/L (3.5-5.1); SGOT/AST 10 IU/L (3-35); SGPT/ALT 54 U/L (12-78); SODIUM 136 mmol/L (136-145); TOTAL PROTEIN 7.6 gm/dL (6.4-8.2)
[2018-07-17] MEDS ORDERED: PREDNISONE5 MG PO (07:34)
[2018-07-17] MEDS ORDERED: CEFUROXIME AXE250 MG PO (07:34)
[2018-07-17 08:00] VITALS: BP 118/58
--- NOTE | 2018-07-17 08:55 | NUR ---
HOME O2 ASSESSMENT: PRE BP: 117/53, HR 127, RR 20, PULSE OX 83% ON ROOM AIR AT REST. PLACED 3 L/M ON PATIENT, SAT >91% @ REST. HR DECREASED TO 110. AMBULATED PATIENT IN HALLWAY ON 3 L/M, SAT DECREASED TO 87% WHILE AMBULATING. INCREASED TO 4 L/M, SAT >92% WHILE AMBULATING. POST BP: 117/49, HR 117, RR [address] HAMILTON NOTIFIED.
--- NOTE | 2018-07-17 09:17 | NUR ---
SPOKE TO DR HAMILTON REGARDING HOME O2 EVAL. PT REQUIRED 4LO2. ORDER RECIEVED FOR 4LNC HOME O2 .
--- NOTE | 2018-07-17 12:22 | NUR ---
Discharge instructions reviewed with patient/family. Patient receptive and verbalizes understanding. Follow-up care arranged. Written instructions given to patient/family. DENIS TELLEZ
== END 2018-07-17 12:22 | disposition home or self-care (01) | DRG 177 ==
LOC: ED 12:00 → EDHOLD 13:44 → 4E 13:44 → ICCU 07-08 12:03 → 4E 07-12 05:09
PROVIDERS: Emergency Medicine; Internal Medicine; Internal Medicine Critical Care Medicine; ADMIT Internal Medicine
PROC: 5A09357 Assistance with Respiratory Ventilation, Less than 24 Consecutive Hours, Continuous Positive Airway Pressure (ICD-10-PCS; principal; 2018-07-08)
PROC: 5A09357 Assistance with Respiratory Ventilation, Less than 24 Consecutive Hours, Continuous Positive Airway Pressure (ICD-10-PCS; 2018-07-09)
PROC: 5A09357 Assistance with Respiratory Ventilation, Less than 24 Consecutive Hours, Continuous Positive Airway Pressure (ICD-10-PCS; 2018-07-10)
PROC: 5A09357 Assistance with Respiratory Ventilation, Less than 24 Consecutive Hours, Continuous Positive Airway Pressure (ICD-10-PCS; 2018-07-11)
PROC: 5A09357 Assistance with Respiratory Ventilation, Less than 24 Consecutive Hours, Continuous Positive Airway Pressure (ICD-10-PCS; 2018-07-12)
PROC: 5A09357 Assistance with Respiratory Ventilation, Less than 24 Consecutive Hours, Continuous Positive Airway Pressure (ICD-10-PCS; 2018-07-13)
PROC: 5A09357 Assistance with Respiratory Ventilation, Less than 24 Consecutive Hours, Continuous Positive Airway Pressure (ICD-10-PCS; 2018-07-14)
DX: J69.0 Pneumonitis due to inhalation of food and vomit (principal); E43 Unspecified severe protein-calorie malnutrition; I50.31 Acute diastolic (congestive) heart failure; J96.21 Acute and chronic respiratory failure with hypoxia; J96.22 Acute and chronic respiratory failure with hypercapnia; L03.211 Cellulitis of face; E87.1 Hypo-osmolality and hyponatremia; K04.7 Periapical abscess without sinus; E78.00 Pure hypercholesterolemia, unspecified; I11.0 Hypertensive heart disease with heart failure; Z98.51 Tubal ligation status; E66.9 Obesity, unspecified; K21.9 Gastro-esophageal reflux disease without esophagitis; E87.6 Hypokalemia; J43.2 Centrilobular emphysema; F17.210 Nicotine dependence, cigarettes, uncomplicated; G62.9 Polyneuropathy, unspecified; G89.29 Other chronic pain; J20.9 Acute bronchitis, unspecified; G47.33 Obstructive sleep apnea (adult) (pediatric); Z71.6 Tobacco abuse counseling; Z68.32 Body mass index [BMI] 32.0-32.9, adult

== ENCOUNTER → 2019-05-19 | Day surgery (SDC) | payer OTHER ==
[~2019-05-19] VITALS: Ht 160 cm; Wt 93.9 kg
[~2019-05-19] MED LIST changes: +ALDACTONE25 MG PO; +CARDIZEM CD240 M1 PO; +CEFUROXIME AXE250 MG PO; +DILTIAZEM HCL240 M1 PO; +LASIX40 MG PO; +LYRICA50 M1 PO; +OMEPRAZOLE20 M2 PO; +PREDNISONE5 MG PO; +QUINAPRIL40 MG PO; +SIMVASTATIN10 MG PO; +SIMVASTATIN40 MG PO; +TRIAMTERENE & H1 CAP PO; +TRIAMTERENE-HC1 EACH PO
[2019-05-19 06:48] VITALS: BP 154/70
[2019-05-19 08:28] VITALS: BP 138/62
[2019-05-19 08:43] VITALS: BP 130/70
[2019-05-19 08:58] VITALS: BP 152/74
== END | disposition home or self-care (01) ==
LOC: SDC 05-16 08:00
DX: Z12.11 Encounter for screening for malignant neoplasm of colon (principal); D12.2 Benign neoplasm of ascending colon; D12.4 Benign neoplasm of descending colon; D12.5 Benign neoplasm of sigmoid colon; K29.70 Gastritis, unspecified, without bleeding; K21.9 Gastro-esophageal reflux disease without esophagitis; K44.9 Diaphragmatic hernia without obstruction or gangrene; K64.8 Other hemorrhoids; K57.30 Diverticulosis of large intestine without perforation or abscess without bleeding; I10 Essential (primary) hypertension; J44.9 Chronic obstructive pulmonary disease, unspecified; R74.8 Abnormal levels of other serum enzymes; E66.9 Obesity, unspecified; Z68.37 Body mass index [BMI] 37.0-37.9, adult; Z79.899 Other long term (current) drug therapy; Z87.891 Personal history of nicotine dependence

== ENCOUNTER 2019-10-19 14:11 | Emergency (ER) | payer OTHER ==
[~2019-10-19] VITALS: Ht 160 cm; Wt 93.0 kg
[2019-10-19 14:40] LABS: BASO # 0.1 10*3/uL (0.0-0.1); BASO % 0.5 % (0.0-1.0); EOS # 0.1 10*3/uL (0.0-0.4); EOS % 0.6 % (1.0-4.0); HEMATOCRIT 41.7 % (37.0-47.0); LYMPH # 1.9 10*3/uL (1.3-4.4); LYMPH % 17.1 % (27.0-41.0); MEAN CORPUSCULAR HGB 30.1 pg (27.0-31.0); MEAN CORPUSCULAR HGB CONC 31.7 g/dl (33.0-37.0); MEAN PLATELET VOLUME 9.8 fl (9.6-12.3); MONO # 0.7 10*3/uL (0.1-1.0); MONO % 6.5 % (3.0-9.0); NEUT # 8.2 10*3/uL (2.3-7.9); PLATELET COUNT AUTOMATED 273 10*3/uL (130-400); RED BLOOD COUNT 4.39 10*6/uL (4.10-5.10); RED CELL DISTRI WIDTH 14.6 % (0-14.5)
[2019-10-19 14:49] LABS: ACT PARTIAL THROMBO TIME 27.2 SECONDS (20.0-32.1)
[2019-10-19 14:54] LABS: ALBUMIN 2.8 gm/dl (3.1-4.5); ALKALINE PHOSPHATASE 145 U/L (45-117); BUN 13 mg/dl (7-24); CHLORIDE 99 mmol/L (98-107); CREATININE 0.92 mg/dL (0.55-1.02); LIPASE 51 U/L (73-393); POTASSIUM 3.5 mmol/L (3.5-5.1); SGOT/AST 8 IU/L (3-35); SGPT/ALT 15 U/L (12-78); SODIUM 137 mmol/L (136-145); TOTAL PROTEIN 7.2 gm/dL (6.4-8.2); TROPONIN I < 0.015 ng/ml (<0.045)
== END 2019-10-19 16:33 | disposition home or self-care (01) ==
LOC: ED 14:11
PROVIDERS: Nurse Practitioner Family
DX: R60.0 Localized edema (principal); J44.9 Chronic obstructive pulmonary disease, unspecified; I11.0 Hypertensive heart disease with heart failure; I50.9 Heart failure, unspecified; K21.9 Gastro-esophageal reflux disease without esophagitis; F17.200 Nicotine dependence, unspecified, uncomplicated; Z99.81 Dependence on supplemental oxygen; Z79.899 Other long term (current) drug therapy

== ENCOUNTER 2019-11-12 16:51 | Emergency (ER) | payer OTHER ==
[~2019-11-12] VITALS: Ht 160 cm; Wt 90.7 kg
[2019-11-12] MEDS ORDERED: NORCO 10-325 T1 EACH PO (18:40)
== END 2019-11-12 18:56 | disposition home or self-care (01) ==
LOC: ED 16:51
DX: S42.295A Other nondisplaced fracture of upper end of left humerus, initial encounter for closed fracture (principal); I10 Essential (primary) hypertension; J44.9 Chronic obstructive pulmonary disease, unspecified; K21.9 Gastro-esophageal reflux disease without esophagitis; F17.200 Nicotine dependence, unspecified, uncomplicated; Z79.899 Other long term (current) drug therapy; W18.39XA Other fall on same level, initial encounter; Y93.89 Activity, other specified; Y92.89 Other specified places as the place of occurrence of the external cause; Y99.8 Other external cause status

== ENCOUNTER 2019-11-24 11:44 | Inpatient (IN) | payer OTHER ==
[~2019-11-24] VITALS: Ht 160 cm; Wt 93.9 kg
[~2019-11-24 11:44] MED LIST changes: +NORCO 10-325 T1 EACH PO
[2019-11-24 14:58] LABS: BILIRUBIN NEGATIVE (NEGATIVE); CLARITY CLEAR (CLEAR); COLOR YELLOW (YELLOW); GLUCOSE NEGATIVE (NEGATIVE); KETONE NEGATIVE (NEGATIVE); SPECIFIC GRAVITY 1.005 (1.005-1.030)
[2019-11-24 14:59] LABS: BLOOD NEGATIVE (NEGATIVE); LEUKO ESTERASE NEGATIVE (NEGATIVE); NITRITE NEGATIVE (NEGATIVE); PH 6.5 (5.0-9.0); UROBILINOGEN 0.2 E.U./dl (0.2-1.0)
[2019-11-24 15:02] LABS: BACTERIA TRACE; WBC 0-2 wbc/hpf (0-5)
[2019-11-24 15:38] LABS: BASO # 0.1 10*3/uL (0.0-0.1); BASO % 0.6 % (0.0-1.0); EOS # 0.2 10*3/uL (0.0-0.4); HEMATOCRIT 39.5 % (37.0-47.0); LYMPH # 1.9 10*3/uL (1.3-4.4); LYMPH % 24.7 % (27.0-41.0); MEAN CELL VOLUME 89.2 fl (81.0-99.0); MEAN CORPUSCULAR HGB 29.1 pg (27.0-31.0); MEAN CORPUSCULAR HGB CONC 32.7 g/dl (33.0-37.0); MEAN PLATELET VOLUME 8.9 fl (9.6-12.3); MONO # 0.5 10*3/uL (0.1-1.0); MONO % 6.9 % (3.0-9.0); NEUT # 5.1 10*3/uL (2.3-7.9); NEUT % 65.5 % (47.0-73.0); PLATELET COUNT AUTOMATED 336 10*3/uL (130-400); RED BLOOD COUNT 4.43 10*6/uL (4.10-5.10); RED CELL DISTRI WIDTH 13.5 % (0-14.5); WHITE BLOOD COUNT 7.9 10*3/uL (4.8-10.8)
[2019-11-24 15:46] VITALS: BP 130/71
[2019-11-24 15:52] LABS: ALBUMIN 2.7 gm/dl (3.1-4.5); ALKALINE PHOSPHATASE 162 U/L (45-117); BUN 17 mg/dl (7-24); CHLORIDE 99 mmol/L (98-107); CREATININE 0.86 mg/dL (0.55-1.02); POTASSIUM 3.3 mmol/L (3.5-5.1); SGOT/AST 9 IU/L (3-35); SGPT/ALT 18 U/L (12-78); SODIUM 138 mmol/L (136-145); TOTAL PROTEIN 6.7 gm/dL (6.4-8.2)
[2019-11-24 17:10] VITALS: BP 141/64
[2019-11-24 20:00] VITALS: BP 137/67
[2019-11-25] VITALS: BP 144/74
[2019-11-25 07:18] LABS: BASO % 0.4 % (0.0-1.0); EOS # 0.2 10*3/uL (0.0-0.4); EOS % 2.1 % (1.0-4.0); HEMATOCRIT 37.9 % (37.0-47.0); LYMPH # 1.8 10*3/uL (1.3-4.4); MEAN CELL VOLUME 89.8 fl (81.0-99.0); MEAN CORPUSCULAR HGB 29.4 pg (27.0-31.0); MEAN CORPUSCULAR HGB CONC 32.7 g/dl (33.0-37.0); MEAN PLATELET VOLUME 8.9 fl (9.6-12.3); MONO # 0.8 10*3/uL (0.1-1.0); NEUT # 6.4 10*3/uL (2.3-7.9); NEUT % 69.2 % (47.0-73.0); PLATELET COUNT AUTOMATED 325 10*3/uL (130-400); RED BLOOD COUNT 4.22 10*6/uL (4.10-5.10); RED CELL DISTRI WIDTH 13.5 % (0-14.5); WHITE BLOOD COUNT 9.3 10*3/uL (4.8-10.8)
[2019-11-25 07:37] LABS: ALBUMIN 2.6 gm/dl (3.1-4.5); ALKALINE PHOSPHATASE 160 U/L (45-117); BUN 16 mg/dl (7-24); CHLORIDE 100 mmol/L (98-107); CHOLESTEROL 99 mg/dL (<200); CREATININE 0.88 mg/dL (0.55-1.02); HDL CHOLESTEROL 55 mg/dl (40-60); LDL CHOLESTEROL 17 mg/dL (9-159); POTASSIUM 3.1 mmol/L (3.5-5.1); SGOT/AST 10 IU/L (3-35); SGPT/ALT 13 U/L (12-78); SODIUM 139 mmol/L (136-145); TOTAL PROTEIN 6.4 gm/dL (6.4-8.2); TRIGLYCERIDES 133 mg/dl (<150); VLDL CHOLESTEROL 27 mg/dL (6-40)
[2019-11-25 08:00] VITALS: BP 113/54
[2019-11-25 09:08] LABS: VITAMIN D, 25-HYDROXY 9.5 ng/mL (30-100)
[2019-11-25 12:00] VITALS: BP 112/60
[2019-11-25 16:00] VITALS: BP 106/54
[2019-11-25 20:00] VITALS: BP 131/73
[2019-11-26] VITALS: BP 134/58
[2019-11-26 06:35] LABS: ALBUMIN 2.6 gm/dl (3.1-4.5); ALKALINE PHOSPHATASE 173 U/L (45-117); BUN 18 mg/dl (7-24); CHLORIDE 101 mmol/L (98-107); POTASSIUM 3.3 mmol/L (3.5-5.1); SGOT/AST 10 IU/L (3-35); SGPT/ALT 14 U/L (12-78); SODIUM 139 mmol/L (136-145); TOTAL PROTEIN 6.7 gm/dL (6.4-8.2)
[2019-11-26 08:00] VITALS: BP 103/82
[2019-11-26 12:00] VITALS: BP 100/48
[2019-11-26 16:00] VITALS: BP 99/49
[2019-11-26 20:00] VITALS: BP 104/47
[2019-11-27] VITALS: BP 113/59
[2019-11-27 07:12] LABS: BUN 20 mg/dl (7-24); CHLORIDE 101 mmol/L (98-107); POTASSIUM 4.2 mmol/L (3.5-5.1); SODIUM 137 mmol/L (136-145)
[2019-11-27 08:00] VITALS: BP 115/55
[2019-11-27 12:00] VITALS: BP 102/52
[2019-11-27 16:00] VITALS: BP 132/99
[2019-11-27 20:00] VITALS: BP 125/47
[2019-11-28] VITALS: BP 136/56
[2019-11-28 06:45] LABS: BASO % 0.4 % (0.0-1.0); EOS # 0.2 10*3/uL (0.0-0.4); EOS % 2.5 % (1.0-4.0); HEMATOCRIT 36.1 % (37.0-47.0); LYMPH # 2.2 10*3/uL (1.3-4.4); LYMPH % 23.6 % (27.0-41.0); MEAN CORPUSCULAR HGB 29.9 pg (27.0-31.0); MEAN CORPUSCULAR HGB CONC 31.9 g/dl (33.0-37.0); MEAN PLATELET VOLUME 9.6 fl (9.6-12.3); MONO # 0.8 10*3/uL (0.1-1.0); NEUT # 5.9 10*3/uL (2.3-7.9); NEUT % 64.2 % (47.0-73.0); PLATELET COUNT AUTOMATED 331 10*3/uL (130-400); RED BLOOD COUNT 3.84 10*6/uL (4.10-5.10); RED CELL DISTRI WIDTH 13.4 % (0-14.5); WHITE BLOOD COUNT 9.2 10*3/uL (4.8-10.8)
[2019-11-28 08:00] VITALS: BP 122/57
[2019-11-28 12:00] VITALS: BP 106/61
[2019-11-28] MEDS ORDERED: Vitamin D (50,000 UN PO (14:04)
[2019-11-28] MEDS ORDERED: PHARMASSURE V500 MCG PO (14:04)
[2019-11-28] MEDS ORDERED: METRONIDAZOLE500 M1 PO (14:04)
[2019-11-28] MEDS ORDERED: Oscal,Oyster S500 MG PO (14:04)
== END 2019-11-28 15:52 | disposition other institution (70) | DRG 640 ==
LOC: ED 11:44 → EDHOLD 16:05 → 5E 16:05 → EDHOLD 16:28 → 5E 16:46
PROVIDERS: Nurse Practitioner Family; Registered Nurse; ADMIT Emergency Medicine
DX: E83.42 Hypomagnesemia (principal); E43 Unspecified severe protein-calorie malnutrition; G93.41 Metabolic encephalopathy; I50.32 Chronic diastolic (congestive) heart failure; J96.11 Chronic respiratory failure with hypoxia; J96.12 Chronic respiratory failure with hypercapnia; A07.9 Protozoal intestinal disease, unspecified; E78.00 Pure hypercholesterolemia, unspecified; R53.1 Weakness; I11.0 Hypertensive heart disease with heart failure; R42 Dizziness and giddiness; R29.6 Repeated falls; E87.6 Hypokalemia; E83.51 Hypocalcemia; Z98.51 Tubal ligation status; Z80.8 Family history of malignant neoplasm of other organs or systems; Z79.899 Other long term (current) drug therapy; S42.202S Unspecified fracture of upper end of left humerus, sequela; W18.30XS Fall on same level, unspecified, sequela; Z03.818 Encounter for observation for suspected exposure to other biological agents ruled out; Z68.36 Body mass index [BMI] 36.0-36.9, adult

== ENCOUNTER 2020-04-17 12:34 | Observation (INO) | payer OTHER ==
[~2020-04-17] VITALS: Ht 160 cm; Wt 95.0 kg
[~2020-04-17 12:34] MED LIST changes: +METRONIDAZOLE500 M1 PO; +Oscal,Oyster S500 MG PO; +PHARMASSURE V500 MCG PO; +Vitamin D (50,000 UN PO
[2020-04-17 12:43] VITALS: BP 158/73
[2020-04-17 13:11] LABS: BASO % 0.5 % (0.0-1.0); EOS # 0.5 10*3/uL (0.0-0.4); EOS % 6.2 % (1.0-4.0); HEMATOCRIT 37.5 % (37.0-47.0); LYMPH # 1.6 10*3/uL (1.3-4.4); LYMPH % 21.7 % (27.0-41.0); MEAN CELL VOLUME 88.9 fl (81.0-99.0); MEAN CORPUSCULAR HGB 27.5 pg (27.0-31.0); MEAN CORPUSCULAR HGB CONC 30.9 g/dl (33.0-37.0); MEAN PLATELET VOLUME 9.1 fl (9.6-12.3); MONO # 0.5 10*3/uL (0.1-1.0); MONO % 7.1 % (3.0-9.0); NEUT # 4.9 10*3/uL (2.3-7.9); NEUT % 64.4 % (47.0-73.0); PLATELET COUNT AUTOMATED 309 10*3/uL (130-400); RED BLOOD COUNT 4.22 10*6/uL (4.10-5.10); RED CELL DISTRI WIDTH 13.2 % (0-14.5); WHITE BLOOD COUNT 7.6 10*3/uL (4.8-10.8)
[2020-04-17 13:23] LABS: ACT PARTIAL THROMBO TIME 29.6 SECONDS (20.0-32.1)
[2020-04-17 13:28] LABS: ALBUMIN 3.9 gm/dl (3.1-4.5); ALKALINE PHOSPHATASE 111 U/L (45-117); BUN 17 mg/dl (7-24); CHLORIDE 92 mmol/L (98-107); CREATININE 0.96 mg/dL (0.55-1.02); POTASSIUM 4.4 mmol/L (3.5-5.1); SGOT/AST 10 IU/L (3-35); SGPT/ALT 20 U/L (12-78); SODIUM 132 mmol/L (136-145); TOTAL PROTEIN 8.4 gm/dL (6.4-8.2)
[2020-04-17 13:29] VITALS: BP 152/77
[2020-04-17 13:29] LABS: TROPONIN I < 0.015 ng/ml (<0.045)
[2020-04-17 13:42] LABS: BILIRUBIN Negative (Negative); BLOOD Negative (Negative); CLARITY Clear (Clear); COLOR Yellow (Yellow); GLUCOSE Negative (Negative); KETONE Negative (Negative); LEUKO ESTERASE Negative (Negative); NITRITE Negative (Negative); PH 7.5 (4.5-8.0); SPECIFIC GRAVITY <= 1.005 (1.001-1.030); UROBILINOGEN 0.2 E.U./dl (0.0-1.0)
--- NOTE | 2020-04-17 13:48 | NUR ---
PT HAS A FEW SMALL AREAS ON HER LOWER LEGS FROM SCRATCHING. THEY ARE SCABED OVER.
[2020-04-17 13:51] LABS: BACTERIA TRACE; EPITHELIAL CELLS 0-2
--- NOTE | 2020-04-17 13:54 | NUR ---
BROOKE HAD A RUN OF V-TACH WHILE WAS IN ROOM.
--- NOTE | 2020-04-17 14:04 | NUR ---
AFTER REVIEING WHAT LOOKED LIKE VTACH ON THE MONITOR, PATIENT WAS ASSESSED AND STABLE. DEFIB PADS PUT IN PLACE. RHYTHM APPEARED TO B E ARTIFACT DUE TO BEING ABLE TO STILL SEE A QRS COMPLEX WITHIN IT. MAG SCANNED IT , HOWEVER HELD AND NOT ADMINISTERED AT THIS TIME.
--- NOTE | 2020-04-17 14:11 | NUR ---
TO ED FOR EVAL OF PATIENT.
[2020-04-17] MEDS ORDERED: CRESTOR20 M1 PO (15:02)
--- NOTE | 2020-04-17 15:24 | NUR ---
CALLED 5E, RN NOT READY FOR PATIENT. CALL WHEN READY.
[2020-04-17 15:53] VITALS: BP 134/65
[2020-04-17 16:00] VITALS: BP 154/72
--- NOTE | 2020-04-17 16:00 | NUR ---
A 75, admitted to 5E, under the services of LAURITA Aragon DO with a diagnosis of AFIB,EDEMA. Chief complaint is BLE EDEMA. Patient arrived via bed from ER. Monitor applied. Initial assessment completed. Vital signs taken and recorded. LAURITA ARAGON DO notified of admission to the unit. Orders received. See assessment for past medical history, medications and allergies. Patient and/or family oriented to unit. [facility] visitation policy reviewed. Clothing/patient valuable form completed. JENNIFER MORENO
--- NOTE | 2020-04-17 19:58 | NUR ---
PATIENT MEDICATED WITH TYLENOL FOR COMPLAINTS OF GENERALIZED DISCOMFORT. WILL MONITOR FOR EFFECTIVENESS.
[2020-04-17 20:00] VITALS: BP 103/63
--- NOTE | 2020-04-17 20:20 | NUR ---
DR. HILL NOTIFIED OF PATIENT HAVING A LONG RUN OF SVT UP IN THE 170'S FOR ABOUT 40 BEATS PER DIRECTOR EXTERNAL COMMUNICATIONS.
--- NOTE | 2020-04-17 20:31 | NUR ---
DR. HILL STATED HE LOOKED AT THE STRIP AND SAID IT IS ARTIFACT. PATIENT HAS NO COMPLAINTS AND VITAL SIGNS ARE STABLE.
--- NOTE | 2020-04-17 20:45 | NUR ---
TYLENOL EFFECTIVE. PATIENT STATES SHE FEELS BETTER.
--- NOTE | 2020-04-17 23:48 | NUR ---
PATIENT MEDICATED WITH RESTORIL FOR COMPLAINTS OF INSOMNIA. WILL MONITOR FOR EFFECTIVENESS. CALL LIGHT IN REACH.
[2020-04-18] VITALS: BP 111/65
--- NOTE | 2020-04-18 02:49 | NUR ---
RESTORIL EFFECTIVE. PATIENT IN BED SNORING. NO SIGNS OR SYMPTOMS OF DISTRESS NOTED. CALL LIGHT IN REACH.
[2020-04-18 06:42] LABS: BASO # 0.1 10*3/uL (0.0-0.1); BASO % 0.5 % (0.0-1.0); EOS # 0.6 10*3/uL (0.0-0.4); HEMATOCRIT 35.6 % (37.0-47.0); LYMPH # 2.3 10*3/uL (1.3-4.4); LYMPH % 23.8 % (27.0-41.0); MEAN CELL VOLUME 89.7 fl (81.0-99.0); MEAN CORPUSCULAR HGB 27.7 pg (27.0-31.0); MEAN CORPUSCULAR HGB CONC 30.9 g/dl (33.0-37.0); MEAN PLATELET VOLUME 9.4 fl (9.6-12.3); MONO # 0.8 10*3/uL (0.1-1.0); MONO % 8.6 % (3.0-9.0); NEUT # 5.9 10*3/uL (2.3-7.9); NEUT % 60.8 % (47.0-73.0); PLATELET COUNT AUTOMATED 288 10*3/uL (130-400); RED BLOOD COUNT 3.97 10*6/uL (4.10-5.10); RED CELL DISTRI WIDTH 13.3 % (0-14.5); WHITE BLOOD COUNT 9.7 10*3/uL (4.8-10.8)
[2020-04-18 06:54] LABS: CREATININE 1.25 mg/dL (0.55-1.02); POTASSIUM 4.5 mmol/L (3.5-5.1)
[2020-04-18 06:59] LABS: THYROID STIM HORMONE (HS) 7.23 uIU/ml (0.358-4.75)
--- NOTE | 2020-04-18 09:20 | NUR ---
Occupational Therapy evaluation completed on five with full evaluation to follow. Recommend occupational therapy per plan of care and home with HH upon discharge. Thank you for this referral. Jody Kruger OTR/L
--- NOTE | 2020-04-18 09:33 | NUR ---
Seam Presser in to talk to patient. Patient states that she lives with her daughter There are 3 steps to get into the Home Physician: [facility]: [facility] Home health services: n/a Patient's level of ADLs: Independent with No needs Patient has working utilities: Yes DME: Pt. uses Home Oxygen 3L NC Follow-up physician's appointment after d/c: Per Hospitalist Nurse Director Does patient want to access PORTAL?: Declines Discharge plan is for Pt. to return home to Live with her Daughter. There are no Home Needs. Pt. is Independent in her ADL's and when needed Her daughter is able to Assist. HELLEN CORTEZ LPN
--- NOTE | 2020-04-18 09:52 | NUR ---
PHYSICAL THERAPY Physical therapy evaluation completed. Full details and evaluation to follow. Low complexity skilled PT evaluation performed (11062). PT will work on strength, gait, balance, safety awareness per POC. Recommend home with 24 hour assist and home health at discharge. Yanira Holland PT DPT
--- NOTE | 2020-04-18 10:09 | NUR ---
PRN TYLENOL 650MG PO GIVEN AT THIS TIME PER PT C/O HEADACHE RATED LEVEL 5/10. WILL MONITOR FOR EFFECT.
[2020-04-18 12:00] VITALS: BP 114/60
[2020-04-18 16:00] VITALS: BP 110/75
[2020-04-18 20:00] VITALS: BP 141/89
--- NOTE | 2020-04-18 20:00 | NUR ---
DENIES ANY NEEDS. ASSESSMENT COMPLETE. CALL LIGHT IN REACH.
--- NOTE | 2020-04-18 22:02 | NUR ---
24 HR chart check completed.
[2020-04-19] VITALS: BP 115/68
--- NOTE | 2020-04-19 00:17 | NUR ---
ASSUMED CARE OF PATIENT. PATIENT IS AAOX3 RESTING IN BED WITH EASY AND REGULAR RESPERS ON 3L O2 VIA NC. ASSESSMENT IS COMPLETE WITH NO S/S OF DISTRESS NOTED AT THIS TIME. PATIENT C/O HEADACHE AND ITCHING. BED IS LOW, LOCKED, ALARMED, AND CALL LIGHT IS WITHIN REACH. WILL CONTINUE TO MONITOR, SEE INTERVENTIONS.
[2020-04-19 06:44] LABS: BASO % 0.5 % (0.0-1.0); EOS # 0.6 10*3/uL (0.0-0.4); EOS % 7.3 % (1.0-4.0); HEMATOCRIT 35.3 % (37.0-47.0); LYMPH # 2.1 10*3/uL (1.3-4.4); LYMPH % 27.6 % (27.0-41.0); MEAN CELL VOLUME 90.1 fl (81.0-99.0); MEAN CORPUSCULAR HGB 27.6 pg (27.0-31.0); MEAN CORPUSCULAR HGB CONC 30.6 g/dl (33.0-37.0); MEAN PLATELET VOLUME 9.5 fl (9.6-12.3); MONO # 0.7 10*3/uL (0.1-1.0); MONO % 9.4 % (3.0-9.0); NEUT # 4.2 10*3/uL (2.3-7.9); NEUT % 55.1 % (47.0-73.0); PLATELET COUNT AUTOMATED 286 10*3/uL (130-400); RED BLOOD COUNT 3.92 10*6/uL (4.10-5.10); RED CELL DISTRI WIDTH 13.6 % (0-14.5); WHITE BLOOD COUNT 7.7 10*3/uL (4.8-10.8)
[2020-04-19 06:47] LABS: CREATININE 1.1 mg/dL (0.55-1.02); POTASSIUM 4.6 mmol/L (3.5-5.1)
[2020-04-19 08:00] VITALS: BP 126/65
--- NOTE | 2020-04-19 09:15 | NUR ---
OT NOTE Pt was seen this A.M. 1:1 for 15 minute OT session. Upon arrival pt was sitting upright in the recliner. Pt identified by name and and had no complaints at this time. Pt presented to therapy with continuous 3L-O2 via NC which she remained on throughout the entire session. While sitting in the recliner pt donned B socks independent while using compensatory technique of bringing her leg up to knee level. Sit to stand completed from chair level with CGA for safety followed by functional mobility into the bathroom with SBA. Pt required min verbal prompts for safety awareness with the O2 line/management, pt presented with fair carry over. There she transferred on/off standard commode with SBA and use of grab bar for UE support. Clothing management completed with SBA. She then stood sink side while washing her hands and completing hair care with SBA. Functional mobility completed back to the recliner with SBA. Pt tolerated aprox 5 minutes of standing at time before sitting due to fatigue. Pt was left sitting upright in the recliner with call light in hand, tray table in place, and phone in reach. Continue with rec D/C plan to home with home health. PRASANNA Fulton/Ame
[2020-04-19] MEDS ORDERED: ELIQUIS5 M1 PO (10:56)
--- NOTE | 2020-04-19 11:10 | NUR ---
Pt daughter had called to state that pt told her she is possibly going to be discharged. Daughter states that pt is still experiencing a lot of itching. Daughter wants this addressed prior to pt coming home. Spoke with pt. States it is located behind knees, elbows, and vaginal itching. Denies any pain or burning with urination. Denies any vaginal discharge. Notified Dr. Bello, who asked if benedryl had been effective for pt when it was given the other day. No note available for this. Dr. Bello states he will order something for pt to go home with.
[2020-04-19] MEDS ORDERED: BENADRYL ALLERG25 M5 PO (11:11)
[2020-04-19 12:00] VITALS: BP 115/62
--- NOTE | 2020-04-19 13:04 | NUR ---
Pt daughter notified of dc order and that diflucan one time dose was given for vaginal itching and benedryl was prescribed as well. Daughter states she will be down to roller picker pt soon.
--- NOTE | 2020-04-19 13:04 | NUR ---
PHYSICAL THERAPY Patient presented to therapy in sitting in bedside chair with no complaints. Patient is on 3 liters of spO2 VIA NASAL CANULA. Patient gives informed consent for treatment. Patient was identified by name and on wristband. Patient performed STS from bedside chair SBA. Patient ambulated with no assistive device and Close Supervision for 45' x 1 with no LOB and no SOB. Patient then sat in bedside chair and performed sitting LAQs, marches and heel/toe raises 2 x 10 reps each for strengthening the LEs in order to improve functional mobility. Patient was left in sitting in bedside chair with call light within reach and LEs in low position. Patient was 1:1 with this EPITAXIAL REACTOR OPERATOR for 15 minutes total. YARA OZUNA EPITAXIAL REACTOR OPERATOR
--- NOTE | 2020-04-19 13:35 | NUR ---
Pt dc via wheelchair to meet daughter out front. Dc with belongings.
--- NOTE | 2020-04-19 14:31 | NUR ---
OCCUPATIONAL THERAPY CO-SIGN I approve of the Occupational Therapy notes written above. ANA LONG, OTR/L
--- NOTE | 2020-04-19 14:41 | NUR ---
PHYSICAL THERAPY CO-SIGN I approve of the Physical Therapy notes written above. SIMRAN BOSE PT,DPT
== END 2020-04-19 13:35 | disposition home or self-care (01) ==
LOC: ED 12:34 → EDHOLD 13:48 → 5E 13:48 → EDHOLD 13:48 → 5E 14:48
PROVIDERS: Hospitalist; Internal Medicine; Student in an Organized Health Care Education/Training Program; ADMIT Family Medicine; ATTEND Family Medicine
DX: I48.91 Unspecified atrial fibrillation (principal); I11.0 Hypertensive heart disease with heart failure; I50.33 Acute on chronic diastolic (congestive) heart failure; J96.10 Chronic respiratory failure, unspecified whether with hypoxia or hypercapnia; J90 Pleural effusion, not elsewhere classified; E66.9 Obesity, unspecified; R06.82 Tachypnea, not elsewhere classified; E87.1 Hypo-osmolality and hyponatremia; E87.8 Other disorders of electrolyte and fluid balance, not elsewhere classified; E87.3 Alkalosis; D64.9 Anemia, unspecified; R53.1 Weakness; E78.5 Hyperlipidemia, unspecified; E55.9 Vitamin D deficiency, unspecified; R06.00 Dyspnea, unspecified; N17.0 Acute kidney failure with tubular necrosis; Z20.828 Contact with and (suspected) exposure to other viral communicable diseases; Z68.30 Body mass index [BMI] 30.0-30.9, adult

== ENCOUNTER → 2020-10-11 | Outpatient (CLI) | payer OTHER ==
[~2020-10-11] MED LIST changes: +BENADRYL ALLERG25 M5 PO; +CRESTOR20 M1 PO; +ELIQUIS5 M1 PO
[2020-10-11 12:03] LABS: BASO % 0.5 % (0.0-1.0); EOS # 0.3 10*3/uL (0.0-0.4); EOS % 3.6 % (1.0-4.0); LYMPH # 1.4 10*3/uL (1.3-4.4); LYMPH % 17.4 % (27.0-41.0); MEAN CELL VOLUME 87.5 fl (81.0-99.0); MEAN CORPUSCULAR HGB 28.4 pg (27.0-31.0); MEAN CORPUSCULAR HGB CONC 32.4 g/dl (33.0-37.0); MEAN PLATELET VOLUME 8.8 fl (9.6-12.3); MONO # 0.7 10*3/uL (0.1-1.0); MONO % 8.5 % (3.0-9.0); NEUT # 5.6 10*3/uL (2.3-7.9); NEUT % 69.9 % (47.0-73.0); PLATELET COUNT AUTOMATED 325 10*3/uL (130-400); RED BLOOD COUNT 4.23 10*6/uL (4.10-5.10); RED CELL DISTRI WIDTH 14.2 % (0-14.5); RETICULOCYTE % 1.71 % (0.50-2.50)
[2020-10-11 12:03] LABS: BILIRUBIN Negative (Negative); BLOOD Negative (Negative); CLARITY Clear (Clear); COLOR Yellow (Yellow); GLUCOSE Negative (Negative); KETONE Negative (Negative); LEUKO ESTERASE 3+ (Negative); NITRITE Negative (Negative); SPECIFIC GRAVITY 1.015 (1.001-1.030)
[2020-10-11 12:15] LABS: BACTERIA 3+; WBC 51-100 wbc/hpf (0-5)
[2020-10-11 12:16] LABS: EPITHELIAL CELLS 21-30
[2020-10-11 12:38] LABS: ALBUMIN 3.3 gm/dl (3.1-4.5); CREATININE 1.24 mg/dL (0.55-1.02); THYROXINE (T4) TOTAL 9.1 ug/dl (4.8-13.9); TOTAL PROTEIN 7.7 gm/dL (6.4-8.2)
[2020-10-11 12:44] LABS: THYROID STIM HORMONE (HS) 4.09 uIU/ml (0.358-4.75)
[2020-10-11 12:47] LABS: FERRITIN 63.8 ng/mL (10.0-291.0); VITAMIN D, 25-HYDROXY 58.8 ng/mL (30-100)
== END | disposition home or self-care (01) ==
LOC: LAB 11:39
PROVIDERS: ATTEND Family Medicine
DX: E78.5 Hyperlipidemia, unspecified (principal); R79.89 Other specified abnormal findings of blood chemistry; R53.83 Other fatigue; E55.9 Vitamin D deficiency, unspecified; Z79.899 Other long term (current) drug therapy

== ENCOUNTER → 2020-11-01 | Outpatient (CLI) | payer OTHER | END | disposition home or self-care (01) | LOC: CT 10-31 10:00 → LAB 13:56 → CT 14:00 | PROVIDERS: ATTEND Internal Medicine Critical Care Medicine | DX: Z01.818 Encounter for other preprocedural examination (principal); J98.11 Atelectasis; I70.0 Atherosclerosis of aorta; K44.9 Diaphragmatic hernia without obstruction or gangrene; R91.8 Other nonspecific abnormal finding of lung field; I25.10 Atherosclerotic heart disease of native coronary artery without angina pectoris; N28.1 Cyst of kidney, acquired; R59.9 Enlarged lymph nodes, unspecified; Z87.891 Personal history of nicotine dependence ==

== ENCOUNTER → 2021-05-15 | Outpatient (CLI) | payer OTHER | END | disposition home or self-care (01) | LOC: CT 05-13 13:15 | PROVIDERS: ATTEND Internal Medicine Critical Care Medicine | DX: J43.8 Other emphysema (principal); J40 Bronchitis, not specified as acute or chronic; R91.8 Other nonspecific abnormal finding of lung field; I70.0 Atherosclerosis of aorta; J44.9 Chronic obstructive pulmonary disease, unspecified; Z87.891 Personal history of nicotine dependence; Z68.39 Body mass index [BMI] 39.0-39.9, adult ==

== ENCOUNTER → 2022-01-15 | Outpatient (CLI) | payer OTHER ==
[2022-01-15 13:09] LABS: BASO % 0.6 % (0.0-1.0); EOS # 0.1 10*3/uL (0.0-0.4); EOS % 1.9 % (1.0-4.0); HEMATOCRIT 39.5 % (37.0-47.0); LYMPH # 1.4 10*3/uL (1.3-4.4); MEAN CELL VOLUME 88.4 fl (81.0-99.0); MEAN CORPUSCULAR HGB 28.9 pg (27.0-31.0); MEAN CORPUSCULAR HGB CONC 32.7 g/dl (33.0-37.0); MEAN PLATELET VOLUME 9.5 fl (9.6-12.3); MONO # 0.5 10*3/uL (0.1-1.0); MONO % 7.2 % (3.0-9.0); NEUT # 4.6 10*3/uL (2.3-7.9); PLATELET COUNT AUTOMATED 293 10*3/uL (130-400); RED BLOOD COUNT 4.47 10*6/uL (4.10-5.10); RED CELL DISTRI WIDTH 13.4 % (0-14.5); RETICULOCYTE % 1.46 % (0.50-2.50); WHITE BLOOD COUNT 6.7 10*3/uL (4.8-10.8)
[2022-01-15 13:11] LABS: BILIRUBIN Negative (Negative); BLOOD Negative (Negative); CLARITY Clear (Clear); COLOR Yellow (Yellow); GLUCOSE Negative (Negative); KETONE Negative (Negative); LEUKO ESTERASE 2+ (Negative); NITRITE Negative (Negative); PH 6.5 (4.5-8.0); SPECIFIC GRAVITY <= 1.005 (1.001-1.030); UROBILINOGEN 0.2 E.U./dl (0.0-1.0)
[2022-01-15 13:27] LABS: CREATININE 1.5 mg/dL (0.55-1.02); POTASSIUM 3.9 mmol/L (3.5-5.1); TOTAL PROTEIN 7.9 gm/dL (6.4-8.2); URIC ACID 6.3 mg/dL (2.6-6.0)
[2022-01-15 13:30] LABS: WBC 21-30 wbc/hpf (0-5)
[2022-01-15 13:31] LABS: BACTERIA 1+; HYALINE CAST 0-2
[2022-01-15 13:34] LABS: THYROID STIM HORMONE (HS) 3.72 uIU/ml (0.358-4.75)
[2022-01-15 14:17] LABS: FERRITIN 80.9 ng/mL (10.0-291.0); VITAMIN D, 25-HYDROXY 88.4 ng/mL (30-100)
[2022-01-16 12:07] LABS: RHEUMATOID FACTOR <10.0 IU/mL (<14.0)
[2022-01-16 13:06] LABS: ANTI-DSDNA ANTIBODIES <1 IU/mL (0-9)
== END | disposition home or self-care (01) ==
LOC: LAB 12:36
PROVIDERS: ATTEND Family Medicine
DX: R53.83 Other fatigue (principal); R79.89 Other specified abnormal findings of blood chemistry; E78.5 Hyperlipidemia, unspecified; E55.9 Vitamin D deficiency, unspecified

== ENCOUNTER → 2022-08-28 | Outpatient (CLI) | payer OTHER | END | disposition home or self-care (01) | LOC: ORTHO 01:08 | PROVIDERS: ATTEND Orthopaedic Surgery | DX: M19.032 Primary osteoarthritis, left wrist (principal); M19.031 Primary osteoarthritis, right wrist; M25.832 Other specified joint disorders, left wrist; M25.831 Other specified joint disorders, right wrist ==

== ENCOUNTER → 2023-01-20 | Outpatient (CLI) | payer OTHER ==
[2023-01-20 15:16] LABS: BILIRUBIN Negative (Negative); BLOOD Negative (Negative); CLARITY Clear (Clear); COLOR Yellow (Yellow); GLUCOSE Negative (Negative); KETONE Negative (Negative); LEUKO ESTERASE 3+ (Negative); NITRITE Negative (Negative)
[2023-01-20 15:18] LABS: BASO # 0.1 10*3/uL (0.0-0.1); BASO % 0.6 % (0.0-1.0); EOS # 0.2 10*3/uL (0.0-0.4); EOS % 1.8 % (1.0-4.0); HEMATOCRIT 38.4 % (37.0-47.0); LYMPH # 1.7 10*3/uL (1.3-4.4); LYMPH % 19.6 % (27.0-41.0); MEAN CELL VOLUME 84.8 fl (81.0-99.0); MEAN CORPUSCULAR HGB 27.6 pg (27.0-31.0); MEAN CORPUSCULAR HGB CONC 32.6 g/dl (33.0-37.0); MEAN PLATELET VOLUME 9.7 fl (9.6-12.3); MONO # 0.7 10*3/uL (0.1-1.0); MONO % 8.4 % (3.0-9.0); NEUT % 69.3 % (47.0-73.0); PLATELET COUNT AUTOMATED 308 10*3/uL (130-400); RED BLOOD COUNT 4.53 10*6/uL (4.10-5.10); RED CELL DISTRI WIDTH 15.9 % (0-14.5); RETICULOCYTE % 1.22 % (0.50-2.50); WHITE BLOOD COUNT 8.7 10*3/uL (4.8-10.8)
[2023-01-20 15:44] LABS: ALKALINE PHOSPHATASE 134 U/L (46-116); BUN 19 mg/dl (9-23); CHLORIDE 101 mmol/L (98-107); CHOLESTEROL 155 mg/dL (<200); GAMMA GLUTAMYL TRANSPEPTIDASE 20 U/L (0-73); LDL CHOLESTEROL 76 mg/dL (9-159); POTASSIUM 4.3 mmol/L (3.4-5.1); SGPT/ALT 9 U/L (10-49); T3 UPTAKE 27.3 % (22.4-36.7); THYROXINE (T4) TOTAL 6.7 ug/dl (4.5-10.9); TRIGLYCERIDES 188 mg/dl (<150)
[2023-01-20 15:45] LABS: VITAMIN D, 25-HYDROXY 96.2 ng/mL (30-100)
[2023-01-20 16:00] LABS: WBC 41-50 wbc/hpf (0-5)
[2023-01-20 16:01] LABS: BACTERIA 1+; RBC 0-2 rbc/hpf (0-2)
== END | disposition home or self-care (01) ==
LOC: LAB 14:56
PROVIDERS: ATTEND Family Medicine
DX: R79.89 Other specified abnormal findings of blood chemistry (principal); E78.5 Hyperlipidemia, unspecified; E55.9 Vitamin D deficiency, unspecified; R53.83 Other fatigue; R74.8 Abnormal levels of other serum enzymes

== ENCOUNTER → 2023-10-19 | Outpatient (CLI) | payer OTHER | END | disposition home or self-care (01) | LOC: US 10-14 08:30 → RAD 14:49 | PROVIDERS: ATTEND Family Medicine | DX: M19.071 Primary osteoarthritis, right ankle and foot (principal); M79.604 Pain in right leg; M79.605 Pain in left leg; G57.93 Unspecified mononeuropathy of bilateral lower limbs; M79.606 Pain in leg, unspecified; I70.203 Unspecified atherosclerosis of native arteries of extremities, bilateral legs; J98.4 Other disorders of lung; M19.072 Primary osteoarthritis, left ankle and foot; M77.32 Calcaneal spur, left foot; M77.31 Calcaneal spur, right foot ==

== ENCOUNTER → 2023-11-01 | Outpatient (CLI) | payer OTHER ==
[2023-11-01 14:27] LABS: BASO % 0.3 % (0.0-1.0); BILIRUBIN Negative (Negative); BLOOD Negative (Negative); CLARITY Clear (Clear); COLOR Yellow (Yellow); EOS # 0.1 10*3/uL (0.0-0.4); EOS % 1.5 % (1.0-4.0); GLUCOSE Negative (Negative); HEMATOCRIT 35.8 % (37.0-47.0); KETONE Negative (Negative); LEUKO ESTERASE 1+ (Negative); LYMPH # 1.2 10*3/uL (1.3-4.4); LYMPH % 12.8 % (27.0-41.0); MEAN CELL VOLUME 89.1 fl (81.0-99.0); MEAN CORPUSCULAR HGB 27.9 pg (27.0-31.0); MEAN CORPUSCULAR HGB CONC 31.3 g/dl (33.0-37.0); MEAN PLATELET VOLUME 9.2 fl (9.6-12.3); MONO # 0.8 10*3/uL (0.1-1.0); MONO % 8.9 % (3.0-9.0); NEUT % 76.3 % (47.0-73.0); NITRITE Negative (Negative); PH 6.5 (4.5-8.0); PLATELET COUNT AUTOMATED 286 10*3/uL (130-400); RED BLOOD COUNT 4.02 10*6/uL (4.10-5.10); RED CELL DISTRI WIDTH 15.3 % (0-14.5); RETICULOCYTE % 1.15 % (0.50-2.50); SPECIFIC GRAVITY <= 1.005 (1.001-1.030); UROBILINOGEN 0.2 E.U./dl (0.0-1.0); WHITE BLOOD COUNT 9.2 10*3/uL (4.8-10.8)
[2023-11-01 14:34] LABS: BACTERIA 1+
[2023-11-01 14:55] LABS: POTASSIUM 4.1 mmol/L (3.4-5.1); T3 UPTAKE 31.3 % (22.4-36.7); THYROXINE (T4) TOTAL 7.1 ug/dl (4.5-10.9); TOTAL PROTEIN 7.4 gm/dL (6.0-8.0)
[2023-11-01 14:56] LABS: VITAMIN D, 25-HYDROXY 81.3 ng/mL (30-100)
== END | disposition home or self-care (01) ==
LOC: LAB 13:54
PROVIDERS: ATTEND Family Medicine
DX: E55.9 Vitamin D deficiency, unspecified (principal); R79.89 Other specified abnormal findings of blood chemistry; R53.83 Other fatigue; E78.5 Hyperlipidemia, unspecified

== ENCOUNTER 2025-03-08 16:12 | Emergency (ER) | payer MEDICARE ==
[~2025-03-08] VITALS: Wt 99.8 kg
[~2025-03-08 16:12] MED LIST changes: +FUROSEMIDE40 MG PO; +GABAPENTIN100 M2 PO; +OMNICEF300 MG PO; +POTASSIUM CHLO20 ME3 PO; +ROPINIROLE HYDRO1 MG PO
[2025-03-08] MEDS ORDERED: AMOX-CLAV 875-1 EACH PO (18:46)
[2025-03-08] MEDS ORDERED: AMOXICILLIN500 M2 PO (21:05)
== END 2025-03-08 21:21 | disposition home or self-care (01) ==
LOC: ED 16:12
DX: K08.89 Other specified disorders of teeth and supporting structures (principal); Z88.6 Allergy status to analgesic agent; Z79.899 Other long term (current) drug therapy; Z90.49 Acquired absence of other specified parts of digestive tract; Z87.891 Personal history of nicotine dependence

== ENCOUNTER 2025-03-19 17:10 | Inpatient (IN) | payer MEDICARE ==
[~2025-03-19] VITALS: Ht 160 cm; Wt 108.9 kg
[~2025-03-19 17:10] MED LIST changes: +AMOX-CLAV 875-1 EACH PO
[2025-03-19 17:13] VITALS: BP 122/43
[2025-03-19 18:05] LABS: BASO # 0.1 10*3/uL (0.0-0.1); BASO % 0.6 % (0.0-1.0); EOS # 0.4 10*3/uL (0.0-0.4); EOS % 4.6 % (1.0-4.0); MEAN CELL VOLUME 98.7 fl (81.0-99.0); MEAN CORPUSCULAR HGB 29.2 pg (27.0-31.0); MEAN PLATELET VOLUME 9.6 fl (9.6-12.3); MONO # 0.7 10*3/uL (0.1-1.0); MONO % 9.2 % (3.0-9.0); NEUT # 5.4 10*3/uL (2.3-7.9); NEUT % 68.8 % (47.0-73.0); NUCLEATED RED BLOOD CELL 0.0 % (0.0-0.0); NUCLEATED RED BLOOD CELL 0.0 10*3/uL (0.0-0.0); PLATELET COUNT AUTOMATED 244 10*3/uL (130-400); RED CELL DISTRI WIDTH 15.5 % (0-14.5)
[2025-03-19 18:17] LABS: ACT PARTIAL THROMBO TIME 29.1 SECONDS (20.0-32.1)
[2025-03-19 18:27] LABS: BUN 21.0 mg/dl (9-23); SGPT/ALT 21.0 U/L (5-49)
[2025-03-19] MEDS ORDERED: diphenhydrAMINE hydrochloride 50 MG/ML VIAL IV ONE (18:45)
[2025-03-19] MEDS ORDERED: FUROSEMIDE 40 MG/4 ML VIAL IV ONE (19:30)
[2025-03-19 19:44] VITALS: BP 121/65
[2025-03-19] MEDS ORDERED: COZAAR25 M1 PO (20:52)
[2025-03-19 22:00] VITALS: BP 113/53
[2025-03-19] MEDS ORDERED: APIXABAN 5 MG TAB PO SCH (22:00)
[2025-03-19] MEDS ORDERED: PERMETHRIN 60 GM TUBE T ONE (22:15)
[2025-03-20] VITALS: BP 123/63
[2025-03-20] MEDS ORDERED: diphenhydrAMINE hydrochloride 25 MG CAP PO PRN (01:00)
[2025-03-20] MEDS ORDERED: FUROSEMIDE 40 MG/4 ML VIAL IV SCH (06:00)
[2025-03-20 06:41] LABS: BASO # 0.1 10*3/uL (0.0-0.1); BASO % 0.5 % (0.0-1.0); EOS # 0.3 10*3/uL (0.0-0.4); EOS % 3.0 % (1.0-4.0); MEAN CELL VOLUME 98.5 fl (81.0-99.0); MEAN CORPUSCULAR HGB 28.7 pg (27.0-31.0); MEAN PLATELET VOLUME 9.8 fl (9.6-12.3); MONO # 1.0 10*3/uL (0.1-1.0); MONO % 10.1 % (3.0-9.0); NEUT # 7.6 10*3/uL (2.3-7.9); NEUT % 75.1 % (47.0-73.0); NUCLEATED RED BLOOD CELL 0.0 % (0.0-0.0); NUCLEATED RED BLOOD CELL 0.0 10*3/uL (0.0-0.0); PLATELET COUNT AUTOMATED 245 10*3/uL (130-400); RED CELL DISTRI WIDTH 15.9 % (0-14.5)
[2025-03-20 06:45] LABS: BUN 17 mg/dl (9-23)
[2025-03-20 08:00] VITALS: BP 113/52
[2025-03-20] MEDS ORDERED: ACETAMINOPHEN 325 MG TAB PO PRN (11:20)
[2025-03-20 12:00] VITALS: BP 98/47
[2025-03-20] MEDS ORDERED: FUROSEMIDE 20 MG/2 ML VIAL IV ONE (13:25)
[2025-03-20 16:00] VITALS: BP 124/73
[2025-03-20] MEDS ORDERED: FUROSEMIDE 100 MG/10 ML VIAL IV SCH (18:00)
[2025-03-20 20:00] VITALS: BP 140/67
[2025-03-20] MEDS ORDERED: Albuterol Sulf/Ipratropium 3 ML VIAL NEB SCH (21:30)
[2025-03-20] MEDS ORDERED: Amoxicillin/Clavulanate Pota 875 MG TAB PO SCH (22:00)
[2025-03-20] MEDS ORDERED: GABAPENTIN 100 MG CAP PO SCH (22:00)
[2025-03-20] MEDS ORDERED: ATORVASTATIN CALCIUM 40 MG TABLET PO SCH (22:00)
[2025-03-20 22:25] LABS: ABG O2 SATURATION 95.2 % (94.0-98.0); ARTERIAL BLOOD GAS PH 7.323 (7.350-7.450); ARTERIAL BLOOD GAS PO2 80.7 mmHg (83.0-108.0)
[2025-03-20 22:30] LABS: ABG BASE EXCESS 7.0 mmol/L (-2.0-3.0)
[2025-03-21] VITALS: BP 145/68
[2025-03-21 04:00] VITALS: BP 130/67
[2025-03-21] MEDS ORDERED: OMEPRAZOLE 20 MG CAP PO SCH (06:00)
[2025-03-21 06:30] LABS: BUN 22.0 mg/dl (9-23)
[2025-03-21 08:00] VITALS: BP 140/65
[2025-03-21 12:00] VITALS: BP 120/48
[2025-03-21 16:00] VITALS: BP 107/55
[2025-03-21 20:00] VITALS: BP 123/50
[2025-03-21] MEDS ORDERED: BISACODYL 5 MG TAB PO PRN (21:40)
[2025-03-22] VITALS: BP 119/59
[2025-03-22 05:15] VITALS: BP 112/60
[2025-03-22 05:24] LABS: BUN 31.0 mg/dl (9-23)
[2025-03-22 07:15] LABS: ABG O2 SATURATION 91.4 % (94.0-98.0); ARTERIAL BLOOD GAS PH 7.462 (7.350-7.450); ARTERIAL BLOOD GAS PO2 58.4 mmHg (83.0-108.0)
[2025-03-22 07:22] LABS: ABG BASE EXCESS 14.8 mmol/L (-2.0-3.0)
[2025-03-22 08:00] VITALS: BP 121/63
[2025-03-22 12:00] VITALS: BP 113/53
[2025-03-22 16:00] VITALS: BP 128/85
[2025-03-22] MEDS ORDERED: FUROSEMIDE 40 MG/4 ML VIAL IV SCH ×3 (18:00)
[2025-03-22 20:00] VITALS: BP 122/56
[2025-03-23] VITALS: BP 151/61
[2025-03-23 05:48] VITALS: BP 114/52
[2025-03-23 06:04] LABS: BASO # 0.0 10*3/uL (0.0-0.1); BASO % 0.1 % (0.0-1.0); EOS # 0.0 10*3/uL (0.0-0.4); EOS % 0.0 % (1.0-4.0); MEAN CELL VOLUME 94.3 fl (81.0-99.0); MEAN CORPUSCULAR HGB 29.4 pg (27.0-31.0); MEAN PLATELET VOLUME 9.9 fl (9.6-12.3); MONO # 0.9 10*3/uL (0.1-1.0); MONO % 6.5 % (3.0-9.0); NEUT # 11.1 10*3/uL (2.3-7.9); NEUT % 83.9 % (47.0-73.0); NUCLEATED RED BLOOD CELL 0.0 % (0.0-0.0); NUCLEATED RED BLOOD CELL 0.0 10*3/uL (0.0-0.0); PLATELET COUNT AUTOMATED 255 10*3/uL (130-400); RED CELL DISTRI WIDTH 15.9 % (0-14.5)
[2025-03-23 06:16] LABS: BUN 43.0 mg/dl (9-23)
[2025-03-23 08:00] VITALS: BP 122/89
[2025-03-23] MEDS ORDERED: Thiamine 100 MG TAB PO SCH (10:00)
[2025-03-23] MEDS ORDERED: EMPAGLIFLOZIN 10 MG TABLET PO SCH (10:00)
[2025-03-23] MEDS ORDERED: NATURE'S BLEND100 M2 PO (11:39)
[2025-03-23] MEDS ORDERED: JARDIANCE10 MG PO (11:39)
[2025-03-23] MEDS ORDERED: AMOX-CLAV 875-1 EACH PO (11:40)
[2025-03-23] MEDS ORDERED: PREDNISONE50 MG PO (11:40)
[2025-03-23] MEDS ORDERED: LASIX20 MG PO (11:40)
[2025-03-23] MEDS ORDERED: VENT7GM INH (11:40)
[2025-03-23] MEDS ORDERED: OXYGEN NAS (11:41)
[2025-03-23] MEDS ORDERED: KLOR-CON M2020 ME1 PO (11:44)
[2025-03-23 12:00] VITALS: BP 120/77
== END 2025-03-23 14:35 | disposition home health service (06) | DRG 291 ==
LOC: ED 17:10 → 4E 19:45 → EDHOLD 19:45 → 4E 21:21
PROVIDERS: Internal Medicine; Internal Medicine Critical Care Medicine; Nurse Practitioner Family; Student in an Organized Health Care Education/Training Program; ADMIT Internal Medicine; ATTEND Internal Medicine
PROC: 5A09357 Assistance with Respiratory Ventilation, Less than 24 Consecutive Hours, Continuous Positive Airway Pressure (ICD-10-PCS; principal; 2025-03-20)
PROC: 5A09357 Assistance with Respiratory Ventilation, Less than 24 Consecutive Hours, Continuous Positive Airway Pressure (ICD-10-PCS; 2025-03-21)
PROC: 5A09357 Assistance with Respiratory Ventilation, Less than 24 Consecutive Hours, Continuous Positive Airway Pressure (ICD-10-PCS; 2025-03-22)
PROC: 5A09357 Assistance with Respiratory Ventilation, Less than 24 Consecutive Hours, Continuous Positive Airway Pressure (ICD-10-PCS; 2025-03-23)
DX: I13.0 Hypertensive heart and chronic kidney disease with heart failure and stage 1 through stage 4 chronic kidney disease, or unspecified chronic kidney disease (principal); I50.33 Acute on chronic diastolic (congestive) heart failure; J96.21 Acute and chronic respiratory failure with hypoxia; E44.0 Moderate protein-calorie malnutrition; J44.1 Chronic obstructive pulmonary disease with (acute) exacerbation; N17.9 Acute kidney failure, unspecified; I48.21 Permanent atrial fibrillation; E87.3 Alkalosis; Z68.41 Body mass index [BMI] 40.0-44.9, adult; N18.9 Chronic kidney disease, unspecified; R21 Rash and other nonspecific skin eruption; E11.65 Type 2 diabetes mellitus with hyperglycemia; E78.5 Hyperlipidemia, unspecified; K21.9 Gastro-esophageal reflux disease without esophagitis; E66.01 Morbid (severe) obesity due to excess calories; K04.7 Periapical abscess without sinus; Z90.89 Acquired absence of other organs; Z88.8 Allergy status to other drugs, medicaments and biological substances; Z87.891 Personal history of nicotine dependence; Z79.899 Other long term (current) drug therapy